=== PATIENT | female | born 1960 | race Two or more races ===

== ENCOUNTER 2016-06-17 08:15 | Emergency (ER) | payer BC, OTHER ==
[~2016-06-17] VITALS: Ht 157.5 cm; Wt 78.9 kg
[~2016-06-17 08:15] MED LIST: ASPI81CH43 PO; ATO40T PO; ESOM40CA39 PO; LOSA100T27 PO; MET50T PO
[2016-06-17] MEDS ORDERED: SODIUM CHLORIDE 0.9% 1,000 ML IV ONE (09:39)
[2016-06-17 09:48] LABS: Urine RBC None Seen /hpf (0 - 4)
[2016-06-17 09:54] LABS: Basophils # (auto) 0 uL; Basophils % (auto) 0.3 % (0.0-2.0); Eosinophils # (auto) 0.2 uL; Eosinophils % (auto) 1.5 % (0.0-7.0); Hematocrit 40.5 % (36.0-46.0); Hemoglobin 13.6 g/dL (12.2-16.2); Lymphocytes # (auto) 2.6 uL; Lymphocytes % (auto) 20.9 % (10.0-50.0); Mean Corpuscular Hemoglobin 29.8 pg (28.0-32.0); Mean Corpuscular Hgb Conc. 33.6 g/dL (32.0-36.0); Mean Corpuscular Volume 88.6 fL (80.0-100.0); Mean Platelet Volume 8.7 fL (7.4-10.4); Monocytes # (auto) 0.8 uL; Monocytes % (auto) 6.2 % (0.0-12.0); Neutrophils # (auto) 8.7 uL; Neutrophils % (auto) 71.1 % (37.0-80.0); Platelet Count (auto) 431 10^3/uL (140-450); Red Cell Distribution Width 14.3 % (11.6-16.0); White Blood Cell 12.3 10^3/uL (4.4-10.8)
[2016-06-17 10:05] LABS: INR 0.96 (0.9-1.15); Partial Thromboplastin Time 24.3 sec (22.64-33.71); Prothrombin Time 10.4 sec (9.37-12.3)
[2016-06-17 10:08] LABS: Albumin 3.5 g/dL (3.4-5.0); Alkaline Phosphatase 166 U/L (45-117); Anion Gap 6 (5-15); Aspartate Aminotransferase 37 U/L (15-37); BUN/Creatinine Ratio 27.1; Bilirubin, Total 0.4 mg/dL (0.2-1.0); Blood Urea Nitrogen 19 mg/dL (7-18); Calcium 8.6 mg/dL (8.5-10.1); Carbon Dioxide 33 mmol/L (21-32); Chloride 101 mmol/L (98-107); GFR African American 111 mL/min; GFR Non-African American 92 mL/min; Glucose 128 mg/dL (74-106); Potassium 3.4 mmol/L (3.5-5.1); Sodium 140 mmol/L (136-145); Total Protein 7.5 g/dL (6.4-8.2)
[2016-06-17 10:14] LABS: Urine Bilirubin Negative (Negative); Urine Blood Negative /uL (Negative); Urine Color Yellow (Yellow); Urine Glucose Normal (Normal); Urine Ketone Negative (Negative); Urine Mucus FEW (None Seen); Urine Nitrite Negative (Negative); Urine Squamous Epithelial Cell FEW /hpf (<5); Urine Urobilinogen Normal (Negative)
[2016-06-17 10:22] VITALS: BP 133/77
[2016-06-17 10:28] LABS: B-Type Natriuretic Peptide 31.54 pg/mL (0-100)
[2016-06-17 10:42] LABS: Temperature: 23.6 C (20.0-25.0)
== END 2016-06-17 12:16 | disposition home or self-care (01) ==
LOC: ER 08:15
DX: G45.9 Transient cerebral ischemic attack, unspecified (principal); D86.9 Sarcoidosis, unspecified; E86.0 Dehydration; R42 Dizziness and giddiness; F17.210 Nicotine dependence, cigarettes, uncomplicated; E78.5 Hyperlipidemia, unspecified; I10 Essential (primary) hypertension; Z87.11 Personal history of peptic ulcer disease; Z79.82 Long term (current) use of aspirin
CPT/HCPCS: 36415; 70450; 71010; 80053; 81001; 83880; 84484; 85025; 85610; 85730; 93005; 96360

== ENCOUNTER 2019-01-27 11:33 | Inpatient (IN) | payer BC, OTHER ==
[~2019-01-27] VITALS: Ht 157.5 cm; Wt 101.6 kg
[~2019-01-27 11:33] MED LIST changes: +LOSA-39 PO; -LOSA100T27 PO
[2019-01-27] MEDS ORDERED: cloNIDine HCL 0.1 MG TAB PO ONE (12:00)
[2019-01-27 13:18] LABS: Alanine Aminotransferase 43 U/L (13-56); Albumin 3.9 g/dL (3.4-5.0); Anion Gap 4 (5-15); Basophils # (auto) 0.1 uL; Basophils % (auto) 0.9 % (0.0-2.0); Blood Urea Nitrogen 10 mg/dL (7-18); Calcium 8.9 mg/dL (8.5-10.1); Carbon Dioxide 32 mmol/L (21-32); Chloride 107 mmol/L (98-107); Eosinophils # (auto) 0 uL; Eosinophils % (auto) 0.6 % (0.0-7.0); Glucose 97 mg/dL (74-106); Hematocrit 40.9 % (36.0-46.0); Hemoglobin 13.8 g/dL (12.2-16.2); Lymphocytes # (auto) 1.8 uL; Lymphocytes % (auto) 23.4 % (10.0-50.0); Magnesium 2.1 mg/dL (1.6-2.6); Mean Corpuscular Hemoglobin 30.8 pg (28.0-32.0); Mean Corpuscular Hgb Conc. 33.7 g/dL (32.0-36.0); Mean Corpuscular Volume 91.5 fL (80.0-100.0); Monocytes # (auto) 0.6 uL; Monocytes % (auto) 7.4 % (0.0-12.0); Neutrophils # (auto) 5.1 uL; Neutrophils % (auto) 67.7 % (37.0-80.0); Platelet Count (auto) 297 10^3/uL (140-450); Potassium 3.5 mmol/L (3.5-5.1); Red Blood Cells 4.48 10^6/uL (4.0-5.20); Red Cell Distribution Width 14.2 % (11.8-14.3); Sodium 143 mmol/L (136-145); White Blood Cell 7.6 10^3/uL (4.4-10.8)
[2019-01-27 13:23] LABS: Alkaline Phosphatase 87 U/L (45-117); Aspartate Aminotransferase 20 U/L (15-37); BUN/Creatinine Ratio 14.5; Bilirubin, Total 0.4 mg/dL (0.2-1.0); GFR African American 112 mL/min; GFR Non-African American 92 mL/min; Total Protein 7.9 g/dL (6.4-8.2)
[2019-01-27] MEDS ORDERED: LACTULOSE 20Gm/30ML SOLN PO PRN (15:30)
[2019-01-27] MEDS ORDERED: traMADol HCL 50 MG TAB PO PRN (15:30)
[2019-01-27] MEDS ORDERED: DEXTROSE (50%) 50ML SYRG IV PRN (15:30)
[2019-01-27] MEDS ORDERED: ACETAMINOPHEN 500 MG TAB PO PRN (15:30)
[2019-01-27] MEDS ORDERED: MORPHINE SULF INJ 2 MG/ML SYRINGE 1ML IV PRN (15:30)
[2019-01-27] MEDS ORDERED: NITROGLYCERIN 0.4 MG SL TAB SL PRN (15:30)
[2019-01-27] MEDS ORDERED: PROMETHAZINE HCL 25 MG/ML 1ML IV PRN (15:30)
[2019-01-27] MEDS ORDERED: LORazepam 0.5 MG TAB PO PRN (15:30)
[2019-01-27] MEDS: SODIUM CHLORIDE 0.9% 1,000 ML IV SCH (16:58)
[2019-01-27] MEDS: ACCU-CHEK COMFORT CURVE STRIP VI SCH ×2 (17:04→22:53)
--- NOTE | 2019-01-27 19:42 | NUR ---
Telemetry admit from ER WAYNE SILVER admitted to Telemetry unit. Patient oriented to JOSE RUELAS RN primary RN, unit, room, bed, and unit policies regarding patient care and visiting hours. Patient now on continuous telemetry monitoring, tele box #49 and telemetry reading on arrival to unit is Sinus Bradycardia. Patient encouraged to call if they need something. All questions and concerns addressed, patient verbalized understanding. Patient's family is at the bedside. Will continue to monitor every hour and as needed.
[2019-01-27 22:00] VITALS: BP 131/79
[2019-01-27] MEDS: METOPROLOL TARTRATE 25 MG TAB PO SCH (22:00)
[2019-01-27] MEDS ORDERED: ATORVASTATIN 20 MG TAB PO SCH (22:00)
[2019-01-27] MEDS: ATORVASTATIN 20 MG TAB PO SCH (22:53)
[2019-01-28 05:00] VITALS: BP 154/87
[2019-01-28] MEDS: cloNIDine HCL 0.1 MG TAB PO PRN ×2 (05:26→23:21)
[2019-01-28] MEDS: SODIUM CHLORIDE 0.9% 1,000 ML IV SCH ×2 (06:30→18:55)
[2019-01-28] MEDS: ACCU-CHEK COMFORT CURVE STRIP VI SCH ×2 (06:43→12:39)
--- NOTE | 2019-01-28 07:50 | NUR ---
OPENING NOTE Assumed care of patient from NOC RN, [place]. Patient awake and alert with no S/S of distress/SOB or pain. Instructed on POC and to call for assistance PRN, verbalized understanding. Bed in lowest, locked position with side rails up x2 and call light within reach. Will continue to monitor for changes Q1hr and PRN.
[2019-01-28] MEDS ORDERED: ADENOSINE 85 MG in GIVE UN-DILUTED 0 ML IV STA (08:18)
[2019-01-28 09:00] VITALS: BP 147/67
[2019-01-28] MEDS: LISINOPRIL 10 MG TAB PO SCH (10:00)
[2019-01-28] MEDS ORDERED: ASPirin 81 mg TAB PO SCH (10:00)
[2019-01-28] MEDS: ENOXAPARIN SOD 40 MG/0.4 ML SYRINGE SC SCH (10:00)
--- NOTE | 2019-01-28 10:15 | NUR ---
OFF UNIT Patient taken off unit via wheelchair for stress test.
[2019-01-28] MEDS: ASPirin 81 mg TAB PO SCH (12:31)
[2019-01-28] MEDS: METOPROLOL TARTRATE 25 MG TAB PO SCH ×2 (12:33→22:09)
[2019-01-28] MEDS: amLODIPine BESYLATE 5 MG TAB PO SCH (12:35)
[2019-01-28] MEDS: PANTOPRAZOLE 40 MG TAB PO SCH (12:36)
[2019-01-28 13:00] VITALS: BP 156/96
[2019-01-28 17:00] VITALS: BP 144/79
--- NOTE | 2019-01-28 19:15 | NUR ---
Opening Shift Note Assumed care of patient, awake and alert. No S/S of distress/SOB or pain. Safety measures in place bed in lowest position, side rails x2 up, and call light within reach. Instructed on POC and to call for assist PRN, will continue to monitor for changes Q1hr and PRN.
--- NOTE | 2019-01-28 19:15 | NUR ---
CLOSING NOTE Endorsed care of patient to NOC RN, [place].
[2019-01-28] MEDS: ATORVASTATIN 20 MG TAB PO SCH (22:05)
[2019-01-29 05:00] VITALS: BP 139/78
[2019-01-29 06:06] LABS: Urine Bacteria NONE SEEN /hpf (None Seen); Urine Blood Negative /uL (Negative); Urine Specific Gravity 1.012 (1.001-1.035); Urine WBC 2 /hpf (0 - 5)
[2019-01-29 06:24] LABS: Alcohol, Urine < 3.0 mg/dL (0-5); Amphetamine Screen, Urine NEGATIVE (NEGATIVE); Barbiturate Scree,Urine NEGATIVE (NEGATIVE); Benzodiazephine Screen, Urine NEGATIVE (NEGATIVE); Cannabinoid Screen, Urine NEGATIVE (NEGATIVE); Cocaine Screen, Urine NEGATIVE (NEGATIVE); Opiate Scree,Urine NEGATIVE (NEGATIVE); Phencyclidine Screen, Urine NEGATIVE (NEGATIVE)
--- NOTE | 2019-01-29 07:00 | NUR ---
OPENING NOTE ASSUMED CARE. PATIENT IN BED, AWAKE, A&O DENIES DISCOMFORT. UNLABORED, EVEN RESPIRATIONS, DENIES PAIN. EXPLAINED POC, PT VERBALIZE UNDERSTANDING. BED IN LOWEST POSITION, CALL LIGHT WITH IN REACH.
[2019-01-29 08:54] VITALS: BP 156/85
[2019-01-29] MEDS: SODIUM CHLORIDE 0.9% 1,000 ML IV SCH (09:36)
[2019-01-29] MEDS: METOPROLOL TARTRATE 25 MG TAB PO SCH (09:37)
[2019-01-29] MEDS: LISINOPRIL 10 MG TAB PO SCH (09:38)
[2019-01-29] MEDS: amLODIPine BESYLATE 5 MG TAB PO SCH (09:38)
[2019-01-29] MEDS: PANTOPRAZOLE 40 MG TAB PO SCH (09:39)
[2019-01-29] MEDS: ASPirin 81 mg TAB PO SCH (09:39)
[2019-01-29] MEDS: ENOXAPARIN SOD 40 MG/0.4 ML SYRINGE SC SCH (09:41)
[2019-01-29] MEDS ORDERED: LOSARTAN POTASSIUM 50 MG TAB PO SCH (10:00)
--- NOTE | 2019-01-29 10:00 | NUR ---
ROUTINE CHECK/ MEDS PATIENT WAS ABLE TO TAKE MEDICATIONS, AT BED SIDE. CALL LIGHT WITH IN REACH, BED IN LOWEST POSITION. PATIENT DID REFUSED LOVENOX.
[2019-01-29] MEDS ORDERED: AML5T PO (10:17)
--- NOTE | 2019-01-29 11:47 | NUR ---
DISCHARGE PATIENT AWARE OF DISCHARGE PLANS, ORDERS ARE BEING CARRIED OUT.
[2019-01-29 12:49] VITALS: BP 148/75
--- NOTE | 2019-01-29 13:09 | NUR ---
Discharge Discharge education and paperwork provided by NAYAN Rosario, to the patient per MD order. Patient verbalized understanding. Araseli Arias information given to the patient. IV removed by NAYAN Rosario, with clean technique, catheter intact. Dressing applied. Patient tolerated well, no trauma to site. Telemonitor removed and returned to telemonitor tech. Patient collected all personal belongings. Patient refused wheelchair. Patient ambulated with steady gait to hospital lobby to wait for her . Respirations even and unlabored, no distress noted.
--- NOTE | 2019-01-29 13:15 | NUR ---
DISCHARGE PATIENT WAS DISCHARGED, DENIES DISCOMFORT. IV DISCONTINUE, NO TRAUMA TO THE AREA, TELE BOX REMOVED. PATIENT RECEIVED DISCHARGED PACKAGE. DISCHARGE INSTRUCTIONS GIVEN, PATIENT VERBALIZED UNDERSTANDING. PATIENT LEFT, WALKING.
== END 2019-01-29 13:10 | disposition home or self-care (01) | DRG 69 ==
LOC: ER 11:33 → TELE 11:34 → TELE-WESTW 19:42
PROVIDERS: ADMIT Internal Medicine; ATTEND Internal Medicine
DX: G45.9 Transient cerebral ischemic attack, unspecified (principal); Z68.41 Body mass index [BMI] 40.0-44.9, adult; I16.0 Hypertensive urgency; E11.9 Type 2 diabetes mellitus without complications; E78.5 Hyperlipidemia, unspecified; F17.200 Nicotine dependence, unspecified, uncomplicated; E66.01 Morbid (severe) obesity due to excess calories; I10 Essential (primary) hypertension; I25.2 Old myocardial infarction; Z79.82 Long term (current) use of aspirin; Z79.899 Other long term (current) drug therapy; Z81.8 Family history of other mental and behavioral disorders; Z82.49 Family history of ischemic heart disease and other diseases of the circulatory system; Z83.3 Family history of diabetes mellitus; Z86.73 Personal history of transient ischemic attack (TIA), and cerebral infarction without residual deficits; Z87.11 Personal history of peptic ulcer disease; Z79.84 Long term (current) use of oral hypoglycemic drugs
CPT/HCPCS: 36415; 70450; 70551; 71046; 78452; 80053; 80307; 81001; 82533; 82550; 82962; 83036; 83735; 83880; 84443; 84484; 85025; 85379; 85652; 86141; 93005; 93017; 93306; 93886; 96361; 96365; G0378; J0153

== ENCOUNTER → 2019-04-28 | Outpatient (CLI) | payer BC ==
[~2019-04-28] MED LIST changes: +AML5T PO
[2019-04-28 15:34] LABS: Calcium 8.9 mg/dL (8.5-10.1); Potassium 4.2 mmol/L (3.5-5.1)
== END | disposition home or self-care (01) ==
LOC: LAB 14:54
PROVIDERS: ATTEND Internal Medicine Nephrology
DX: I10 Essential (primary) hypertension (principal)
CPT/HCPCS: 36415; 80048

== ENCOUNTER → 2019-08-23 | Outpatient (CLI) | payer BC, OTHER ==
[~2019-08-23] MED LIST changes: +ALBUTEROL SULF 2.5 MG/0.5ML(0.5%) NEB SOLN ONE
== END | disposition home or self-care (01) ==
LOC: RT 08:31
PROVIDERS: ATTEND Internal Medicine Pulmonary Disease
DX: D86.9 Sarcoidosis, unspecified (principal)
CPT/HCPCS: 94060; 94727; 94729

== ENCOUNTER → 2019-12-19 | Outpatient (CLI) | payer BC ==
[~2019-12-19] MED LIST changes: -ALBUTEROL SULF 2.5 MG/0.5ML(0.5%) NEB SOLN ONE
[2019-12-19 07:45] LABS: Basophils # (auto) 0 10 ^3/uL (0-0.2); Basophils % (auto) 0.5 % (0.0-2.0); Eosinophils # (auto) 0.1 10 ^3/uL (0-0.8); Eosinophils % (auto) 1.3 % (0.0-7.0); Hematocrit 42.3 % (36.0-46.0); Hemoglobin 14.1 g/dL (12.2-16.2); Lymphocytes # (auto) 2.6 10 ^3/uL (0.4-5.4); Lymphocytes % (auto) 34.6 % (10.0-50.0); Mean Corpuscular Hemoglobin 30.1 pg (28.0-32.0); Mean Corpuscular Hgb Conc. 33.4 g/dL (32.0-36.0); Mean Corpuscular Volume 90.2 fL (80.0-100.0); Monocytes # (auto) 0.4 10 ^3/uL (0-1.3); Monocytes % (auto) 5.7 % (0.0-12.0); Neutrophils # (auto) 4.4 10 ^3/uL (1.6-8.6); Neutrophils % (auto) 57.9 % (37.0-80.0); Platelet Count (auto) 316 10^3/uL (140-450); Red Blood Cells 4.69 10^6/uL (4.0-5.20); Red Cell Distribution Width 14.5 % (11.8-14.3); White Blood Cell 7.6 10^3/uL (4.4-10.8)
[2019-12-19 08:04] LABS: INR 0.95 (0.9-1.15)
[2019-12-19 08:16] LABS: Albumin 3.9 g/dL (3.4-5.0); BUN/Creatinine Ratio 31.5; Calcium 9.1 mg/dL (8.5-10.1); Potassium 3.5 mmol/L (3.5-5.1)
[2019-12-19 08:20] LABS: Bilirubin, Total 0.5 mg/dL (0.2-1.0)
[2019-12-19 08:43] LABS: Urine Bacteria NONE SEEN /hpf (None Seen); Urine Blood Negative /uL (Negative); Urine Specific Gravity 1.025 (1.001-1.035); Urine WBC 3 /hpf (0 - 5)
== END | disposition home or self-care (01) ==
LOC: LAB 07:23
PROVIDERS: ATTEND Internal Medicine Nephrology
DX: I10 Essential (primary) hypertension (principal); R00.2 Palpitations; Z86.2 Personal history of diseases of the blood and blood-forming organs and certain disorders involving the immune mechanism
CPT/HCPCS: 36415; 80053; 80061; 81001; 84439; 84443; 85025; 85610

== ENCOUNTER → 2019-12-22 | Outpatient (CLI) | payer BC ==
[2019-12-22 09:05] LABS: Potassium 3.6 mmol/L (3.5-5.1)
[2019-12-22 09:13] LABS: Albumin 3.7 g/dL (3.4-5.0); BUN/Creatinine Ratio 20.3; Bilirubin, Total 0.7 mg/dL (0.2-1.0); Calcium 8.6 mg/dL (8.5-10.1); Total Protein 7.3 g/dL (6.4-8.2)
== END | disposition home or self-care (01) ==
LOC: LAB 08:08
PROVIDERS: ATTEND Internal Medicine Nephrology
DX: E78.5 Hyperlipidemia, unspecified (principal); R73.9 Hyperglycemia, unspecified
CPT/HCPCS: 36415; 80053; 82043; 83036; 87086

== ENCOUNTER 2019-12-26 12:09 | Emergency (ER) | payer BC, OTHER ==
[~2019-12-26] VITALS: Ht 157.5 cm; Wt 78.9 kg
[2019-12-26] MEDS ORDERED: ACETAMINOPHEN 500 MG TAB PO ONE (15:15)
[2019-12-26 16:15] VITALS: BP 142/82
== END 2019-12-26 16:21 | disposition home or self-care (01) ==
LOC: ER 12:09
DX: S00.12XA Contusion of left eyelid and periocular area, initial encounter (principal); E78.5 Hyperlipidemia, unspecified; I10 Essential (primary) hypertension; X58.XXXA Exposure to other specified factors, initial encounter; Y93.89 Activity, other specified; Y92.89 Other specified places as the place of occurrence of the external cause; Y99.0 Civilian activity done for income or pay
CPT/HCPCS: 70486; 99284; J7030

== ENCOUNTER → 2020-01-16 | Outpatient (CLI) | payer BC ==
[2020-01-16 16:59] LABS: Basophils # (auto) 0 10 ^3/uL (0-0.2); Basophils % (auto) 0.5 % (0.0-2.0); Eosinophils # (auto) 0.1 10 ^3/uL (0-0.8); Eosinophils % (auto) 1.4 % (0.0-7.0); Hematocrit 39.5 % (36.0-46.0); Hemoglobin 13.3 g/dL (12.2-16.2); Lymphocytes # (auto) 2.2 10 ^3/uL (0.4-5.4); Lymphocytes % (auto) 26.1 % (10.0-50.0); Mean Corpuscular Hemoglobin 30.6 pg (28.0-32.0); Mean Corpuscular Hgb Conc. 33.6 g/dL (32.0-36.0); Mean Corpuscular Volume 91.1 fL (80.0-100.0); Monocytes # (auto) 0.7 10 ^3/uL (0-1.3); Monocytes % (auto) 8.2 % (0.0-12.0); Neutrophils # (auto) 5.4 10 ^3/uL (1.6-8.6); Neutrophils % (auto) 63.8 % (37.0-80.0); Nucleated Red Blood Cells % 0.1 %; Platelet Count (auto) 323 10^3/uL (140-450); Red Blood Cells 4.34 10^6/uL (4.0-5.20); White Blood Cell 8.4 10^3/uL (4.4-10.8)
[2020-01-16 17:09] LABS: Albumin 3.9 g/dL (3.4-5.0); Calcium 9.4 mg/dL (8.5-10.1); Potassium 3.9 mmol/L (3.5-5.1)
[2020-01-16 17:14] LABS: BUN/Creatinine Ratio 18.8; Bilirubin, Total 0.5 mg/dL (0.2-1.0); Total Protein 7.8 g/dL (6.4-8.2)
== END | disposition home or self-care (01) ==
LOC: LAB 15:57
PROVIDERS: ATTEND Internal Medicine
DX: I10 Essential (primary) hypertension (principal); R00.2 Palpitations
CPT/HCPCS: 36415; 80053; 85025

== ENCOUNTER → 2020-05-22 | Outpatient (CLI) | payer BC | END | disposition home or self-care (01) | LOC: XYW 10:06 | PROVIDERS: ATTEND Internal Medicine | DX: I07.1 Rheumatic tricuspid insufficiency (principal); R00.2 Palpitations | CPT/HCPCS: 93306 ==

== ENCOUNTER → 2020-07-24 | Outpatient (CLI) | payer BC | END | disposition home or self-care (01) | LOC: XY 08:54 | PROVIDERS: ATTEND Internal Medicine | DX: R07.9 Chest pain, unspecified (principal); Z86.73 Personal history of transient ischemic attack (TIA), and cerebral infarction without residual deficits | CPT/HCPCS: 93886 ==

== ENCOUNTER → 2021-02-18 | Outpatient (CLI) | payer BC ==
[2021-02-18 10:12] LABS: Basophils # (auto) 0 10 ^3/uL (0-0.2); Basophils % (auto) 0.6 % (0.0-2.0); Eosinophils # (auto) 0 10 ^3/uL (0-0.8); Eosinophils % (auto) 0.2 % (0.0-7.0); Hematocrit 42.3 % (36.0-46.0); Hemoglobin 14.2 g/dL (12.2-16.2); Lymphocytes # (auto) 2.7 10 ^3/uL (0.4-5.4); Lymphocytes % (auto) 31.3 % (10.0-50.0); Mean Corpuscular Hemoglobin 29.9 pg (28.0-32.0); Mean Corpuscular Hgb Conc. 33.6 g/dL (32.0-36.0); Monocytes # (auto) 0.5 10 ^3/uL (0-1.3); Monocytes % (auto) 6.2 % (0.0-12.0); Neutrophils # (auto) 5.3 10 ^3/uL (1.6-8.6); Neutrophils % (auto) 61.7 % (37.0-80.0); Red Blood Cells 4.76 10^6/uL (4.0-5.20); Red Cell Distribution Width 14.4 % (11.8-14.3); White Blood Cell 8.5 10^3/uL (4.4-10.8)
[2021-02-18 10:59] LABS: Calcium 9.3 mg/dL (8.5-10.1); Potassium 3.7 mmol/L (3.5-5.1)
[2021-02-18 11:07] LABS: Albumin 3.7 g/dL (3.4-5.0); BUN/Creatinine Ratio 24.4; Bilirubin, Total 0.5 mg/dL (0.2-1.0); Total Protein 7.7 g/dL (6.4-8.2)
== END | disposition home or self-care (01) ==
LOC: LAB 09:58
PROVIDERS: ATTEND Internal Medicine Nephrology
DX: I10 Essential (primary) hypertension (principal)
CPT/HCPCS: 36415; 80053; 80061; 83036; 84443; 85025

== ENCOUNTER 2022-11-26 06:56 | Day surgery (SDC) | payer BC ==
[2022-11-26] VITALS (9 sets, daily range): BP systolic 149–165; BP diastolic 86–98; PULSE 54–64; RESP 11–16; TEMP 97.4; O2SAT 96–99
[~2022-11-26] VITALS: Ht 157.5 cm; Wt 77.6 kg
[~2022-11-26 06:56] MED LIST changes: -AML5T PO; -ASPI81CH43 PO; -ATO40T PO; +ESOM20CA PO; -ESOM40CA39 PO; -LOSA-39 PO; +LOSA50TA30 PO; +MELA3TAB12 PO; -MET50T PO; +METO-158 PO; +RANO500T3 PO; +ROSU20TA14 PO
[2022-11-26] MEDS ORDERED: LIDOCAINE 2%HCL (LOCAL ANESTH.) INJ 20ML MDV ONE (07:32)
[2022-11-26] MEDS ORDERED: IODIXANOL 320MG/ML 100ML BTL IV ONE (07:32)
[2022-11-26] MEDS ORDERED: IOHEXOL 350 MG/ML 100ML IJ ONE (07:32)
[2022-11-26] MEDS ORDERED: fentaNYL CITRATE 100 MCG/2 ML VL ONE (08:54)
[2022-11-26] MEDS ORDERED: SODIUM CHL 0.9% 0 ML ONE (08:54)
[2022-11-26] MEDS ORDERED: ANGIOMAX 250 MG VIAL IV ONE (08:54)
[2022-11-26] MEDS ORDERED: MIDAZOLAM HCL 2MG/2ML 2ml VIAL (1mg/ml) ONE (08:54)
== END 2022-11-26 12:33 | disposition home or self-care (01) ==
LOC: CATH 06:56
PROVIDERS: ATTEND Internal Medicine
DX: R07.89 Other chest pain (principal); R06.02 Shortness of breath; I10 Essential (primary) hypertension; Z79.899 Other long term (current) drug therapy; Z98.890 Other specified postprocedural states
CPT/HCPCS: 93460; C1757; C1894; J1644; J2250; J3010; Q9967; 99152

== ENCOUNTER → 2022-12-23 | Outpatient (CLI) | payer BC ==
[2022-12-23 10:23] LABS: Alanine Aminotransferase 40 U/L (7-40); Albumin 4.5 g/dL (3.2-4.8); Alkaline Phosphatase 102 U/L (46-116); Anion Gap 4 (5-15); Aspartate Aminotransferase 21 U/L (13-40); BUN/Creatinine Ratio 12.7 (10.0-20.0); Bilirubin, Total 0.6 mg/dL (0.2-1.0); Blood Urea Nitrogen 10 mg/dL (9-23); Calcium 9.5 mg/dL (8.7-10.4); Carbon Dioxide 33 mmol/L (20-30); Chloride 102 mmol/L (98-107); Glucose 184 mg/dL (74-106); Potassium 3.8 mmol/L (3.5-5.1); Sodium 139 mmol/L (136-145); Total Protein 7.5 g/dL (5.7-8.2)
[2022-12-24 11:38] LABS: Urine Bacteria NONE SEEN /hpf (None Seen); Urine Blood Negative /uL (Negative); Urine Clarity Clear (Clear); Urine Color Yellow (Yellow); Urine Protein, UAD Negative (Negative); Urine Specific Gravity 1.018 (1.001-1.035); Urine Urobilinogen Normal (Negative); Urine WBC 19 /hpf (0 - 5)
== END | disposition home or self-care (01) ==
LOC: LAB 09:16
PROVIDERS: ATTEND Internal Medicine
DX: E11.9 Type 2 diabetes mellitus without complications (principal); D64.9 Anemia, unspecified; R94.6 Abnormal results of thyroid function studies
CPT/HCPCS: 36415; 80053; 81001; 83036; 84443; 87086

== ENCOUNTER → 2023-03-11 | Outpatient (CLI) | payer BC ==
[2023-03-11 09:43] LABS: Alanine Aminotransferase 89 U/L (7-40); Alkaline Phosphatase 127 U/L (46-116); Anion Gap 7 (5-15); Aspartate Aminotransferase 46 U/L (13-40); BUN/Creatinine Ratio 11.8 (10.0-20.0); Blood Urea Nitrogen 10 mg/dL (9-23); Calcium 9.6 mg/dL (8.5-10.1); Carbon Dioxide 29 mmol/L (20-30); Chloride 107 mmol/L (98-107); Glucose 163 mg/dL (74-106); LDL Cholesterol 137 mg/dL (< 100); Potassium 4.3 mmol/L (3.5-5.1); Sodium 143 mmol/L (136-145); Triglycerides 111 mg/dL (< 150)
[2023-03-11 09:44] LABS: Albumin 4.4 g/dL (3.2-4.8); Bilirubin, Total 0.6 mg/dL (0.2-1.0); Cholesterol 222 mg/dL (< 200); HDL Cholesterol 63 mg/dL (40-59); Total Protein 7.2 g/dL (5.7-8.2)
== END | disposition home or self-care (01) ==
LOC: LAB 08:40
PROVIDERS: ATTEND Internal Medicine
DX: E11.9 Type 2 diabetes mellitus without complications (principal); R79.9 Abnormal finding of blood chemistry, unspecified; E78.00 Pure hypercholesterolemia, unspecified
CPT/HCPCS: 36415; 80053; 80061; 83036

== ENCOUNTER 2023-11-13 09:50 | Emergency (ER) | payer MEDICARE, BC ==
[~2023-11-13] VITALS: Ht 157.5 cm; Wt 78.5 kg
[2023-11-13 10:45] LABS: Urine Bacteria FEW /hpf (None Seen); Urine Blood 2+ /uL (Negative); Urine Clarity Turbid (Clear); Urine Color Colorless (Yellow); Urine Protein, UAD 1+ (Negative); Urine Specific Gravity 1.032 (1.001-1.035); Urine Urobilinogen Normal (Negative); Urine WBC 511 /hpf (0 - 5)
[2023-11-13 11:31] VITALS: BP 148/91; PULSE 89; RESP 17; TEMP 97.7; O2SAT 96
[2023-11-13] MEDS ORDERED: BACDST PO (11:41)
[2023-11-13] MEDS ORDERED: PHEN-922 PO (11:41)
[2023-11-13] MEDS: cefTRIAXone SOD 1,000 MG VL IM ONE (11:50)
== END 2023-11-13 11:59 | disposition home or self-care (01) ==
LOC: ER 09:50
DX: N39.0 Urinary tract infection, site not specified (principal); E78.5 Hyperlipidemia, unspecified; I10 Essential (primary) hypertension; Z86.73 Personal history of transient ischemic attack (TIA), and cerebral infarction without residual deficits
CPT/HCPCS: 81001; 82962; 96372; 99283; J0696

== ENCOUNTER 2023-11-19 09:29 | Inpatient (IN) | payer MEDICARE, BC ==
[~2023-11-19] VITALS: Ht 157.5 cm; Wt 80.9 kg
[~2023-11-19 09:29] MED LIST changes: +BACDST PO; +PHEN-922 PO
[2023-11-19 10:20] LABS: Urine Bacteria None Seen /hpf (None Seen)
[2023-11-19] MEDS: SODIUM CHLORIDE 0.9% 1,000 ML IV ONE (10:45)
[2023-11-19 10:52] LABS: Urine Blood Negative /uL (Negative); Urine Clarity Clear (Clear); Urine Color Yellow (Yellow); Urine Mucus FEW (None Seen); Urine Protein, UAD TRACE (Negative); Urine Specific Gravity 1.033 (1.001-1.035); Urine Urobilinogen Normal (Negative); Urine WBC 1 /hpf (0 - 5); Urine pH 5.5 (5.0-9.0)
[2023-11-19 11:00] VITALS: PULSE 85; RESP 16; O2SAT 100
[2023-11-19] MEDS: ONDANSETRON HCL 4 MG/2 ML VIAL IV ONE (11:42)
[2023-11-19] MEDS: MORPHINE SULFATE 4 MG/ML SYR/VIAL IV ONE ×2 (11:44→14:37)
[2023-11-19 11:59] LABS: Basophils # (auto) 0 10 ^3/uL (0-0.2); Basophils % (auto) 0.3 % (0.0-2.0); Eosinophils # (auto) 0 10 ^3/uL (0-0.8); Eosinophils % (auto) 0.2 % (0.0-7.0); Hemoglobin 15.2 g/dL (12.2-16.2); Lymphocytes # (auto) 1.3 10 ^3/uL (0.4-5.4); Lymphocytes % (auto) 10.9 % (10.0-50.0); Mean Corpuscular Hemoglobin 30.4 pg (28.0-32.0); Mean Corpuscular Hgb Conc. 33.8 g/dL (32.0-36.0); Monocytes # (auto) 0.7 10 ^3/uL (0-1.3); Monocytes % (auto) 5.6 % (0.0-12.0); Neutrophils # (auto) 9.7 10 ^3/uL (1.6-8.6); Platelet Count (auto) 365 10^3/uL (140-450); White Blood Cell 11.7 10^3/uL (4.4-10.8)
[2023-11-19 12:01] LABS: Alanine Aminotransferase 395 U/L (7-40); Albumin 5.1 g/dL (3.2-4.8); Alkaline Phosphatase 303 U/L (46-116); Anion Gap 5 (5-15); Aspartate Aminotransferase 248 U/L (13-40); BUN/Creatinine Ratio 11.4 (10.0-20.0); Blood Urea Nitrogen 9 mg/dL (9-23); Calcium 10.3 mg/dL (8.7-10.4); Carbon Dioxide 30 mmol/L (20-30); Chloride 104 mmol/L (98-107); Glucose 168 mg/dL (74-106); Sodium 139 mmol/L (136-145)
[2023-11-19 12:02] LABS: Bilirubin, Total 0.7 mg/dL (0.2-1.0); Total Protein 8.3 g/dL (5.7-8.2)
[2023-11-19] MEDS: FAMOTIDINE 20 MG TAB PO ONE (12:50)
[2023-11-19] MEDS: PIPERACILLIN-TAZO 4.5GM 100 ML IV ONE (13:06)
[2023-11-19] MEDS: HYDROmorphone HCL 2 MG/ML VL/or syr IV ONE (13:58)
[2023-11-19] MEDS ORDERED: NITROGLYCERIN 0.4 MG SL TAB SL PRN (16:15)
[2023-11-19] MEDS ORDERED: ONDANSETRON HCL 4 MG/2 ML VIAL IV PRN (16:15)
[2023-11-19] MEDS ORDERED: MORPHINE SULFATE INJ 2 MG/ml SYRG IV PRN (16:15)
[2023-11-19] MEDS ORDERED: DOCUSATE SOD 100 MG CAP PO PRN (16:15)
[2023-11-19] MEDS ORDERED: DEXTROSE (50%) 50ML SYRG IV PRN (16:15)
[2023-11-19] MEDS: PANTOPRAZOLE 40 MG/10 ML VIAL INJ IV ONE (17:35)
[2023-11-19] MEDS: PIPERACILLIN-TAZOB 3.375GM 100 ML IV ONE (17:35)
[2023-11-19] MEDS: SODIUM CHLORIDE 0.9% 1,000 ML IV SCH (17:36)
[2023-11-19] MEDS: PIPERACILLIN-TAZOB 3.375GM 100 ML IV SCH (17:57)
[2023-11-19] MEDS: InsuLIN REG 1unit/0.01ml Soln (100units/ml) SC SCH (18:58)
[2023-11-19] MEDS: ACCU-CHEK COMFORT CURVE STRIP VI SCH (18:58)
[2023-11-19 21:30] VITALS: PULSE 72; RESP 19; O2SAT 95
[2023-11-19 22:02] VITALS: BP 152/83; PULSE 75; RESP 16; TEMP 98.2; O2SAT 97
[2023-11-19] MEDS ORDERED: EMPA1TAB3 PO (22:15)
[2023-11-19 22:38] VITALS: BP 152/83; PULSE 74; PULSE 75; RESP 16; TEMP 98.2; O2SAT 97
[2023-11-20 00:38] VITALS: BP 128/76; PULSE 71; RESP 14; TEMP 98.6; O2SAT 93
[2023-11-20] MEDS: PANTOPRAZOLE 40 MG/10 ML VIAL INJ IV ONE (01:18)
[2023-11-20 05:00] VITALS: BP 104/53; PULSE 71; RESP 14; TEMP 97.9; O2SAT 96
[2023-11-20 06:51] LABS: Alanine Aminotransferase 241 U/L (7-40); Albumin 4.1 g/dL (3.2-4.8); Alkaline Phosphatase 214 U/L (46-116); Anion Gap 6 (5-15); Aspartate Aminotransferase 85 U/L (13-40); BUN/Creatinine Ratio 9.4 (10.0-20.0); Blood Urea Nitrogen 6 mg/dL (9-23); Calcium 9.5 mg/dL (8.7-10.4); Carbon Dioxide 28 mmol/L (20-30); Chloride 106 mmol/L (98-107); Glucose 110 mg/dL (74-106); Potassium 3.8 mmol/L (3.5-5.1); Sodium 140 mmol/L (136-145); Total Protein 6.6 g/dL (5.7-8.2)
[2023-11-20 06:55] LABS: Basophils # (auto) 0 10 ^3/uL (0-0.2); Basophils % (auto) 0.3 % (0.0-2.0); Eosinophils # (auto) 0.1 10 ^3/uL (0-0.8); Eosinophils % (auto) 0.8 % (0.0-7.0); Hematocrit 35.9 % (36.0-46.0); Hemoglobin 12.6 g/dL (12.2-16.2); Lymphocytes # (auto) 1.9 10 ^3/uL (0.4-5.4); Lymphocytes % (auto) 20.2 % (10.0-50.0); Mean Corpuscular Hemoglobin 31.5 pg (28.0-32.0); Mean Corpuscular Hgb Conc. 35.2 g/dL (32.0-36.0); Mean Corpuscular Volume 89.5 fL (80.0-100.0); Monocytes # (auto) 0.6 10 ^3/uL (0-1.3); Monocytes % (auto) 6.2 % (0.0-12.0); Neutrophils # (auto) 6.9 10 ^3/uL (1.6-8.6); Neutrophils % (auto) 72.5 % (37.0-80.0); Platelet Count (auto) 273 10^3/uL (140-450); Red Blood Cells 4.01 10^6/uL (4.0-5.20); Red Cell Distribution Width 15.4 % (11.8-14.3); White Blood Cell 9.6 10^3/uL (4.4-10.8)
[2023-11-20 08:00] VITALS: RESP 18
[2023-11-20] MEDS ORDERED: PANTOPRAZOLE 40 MG/10 ML VIAL INJ IV SCH (10:00)
[2023-11-20] MEDS: PANTOPRAZOLE 40 MG/10 ML VIAL INJ IV SCH (10:04)
[2023-11-20 11:00] VITALS: BP 145/80; PULSE 75; RESP 14; TEMP 98.9; O2SAT 96
[2023-11-20 16:03] VITALS: BP 121/79; PULSE 73; RESP 16; TEMP 98.4; O2SAT 94
[2023-11-20] MEDS ORDERED: DEXL30CA4 PO (17:50)
[2023-11-20] MEDS ORDERED: LOSA-535 PO (17:51)
[2023-11-20 20:41] VITALS: BP 153/81; PULSE 76; RESP 14; TEMP 99; O2SAT 95
[2023-11-21 01:00] VITALS: BP 162/94; PULSE 74; RESP 14; TEMP 98.5; O2SAT 97
[2023-11-21] MEDS: METOPROLOL TARTRATE 50 MG TAB PO ONE (04:54)
[2023-11-21 05:00] VITALS: BP 188/101; PULSE 82; RESP 14; TEMP 98.2; O2SAT 95
[2023-11-21 08:50] VITALS: BP 172/86; PULSE 64; RESP 18; TEMP 98.5; O2SAT 96
[2023-11-21] MEDS ORDERED: METR-344 PO (10:11)
[2023-11-21] MEDS ORDERED: LEVO500T91 PO (10:11)
[2023-11-21] MEDS: LOSARTAN POTASSIUM 50 MG TAB PO SCH (10:20)
[2023-11-21] MEDS ORDERED: METOPROLOL TARTRATE 50 MG TAB PO SCH (22:00)
[2023-11-23 10:05] LABS: Hepatitis B Surface Antigen Negative (Negative)
[2023-11-23 10:25] LABS: Hepatitis A Ab IgM Negative
[2023-11-23 10:26] LABS: Hepatitis B Core IgM Negative; Hepatitis C Antibody Negative (Negative)
== END 2023-11-21 11:35 | disposition home or self-care (01) | DRG 392 ==
LOC: ER 09:29 → OVERFLOW 16:17 → EAST 16:17
PROVIDERS: ADMIT Nurse Practitioner Family; ATTEND Family Medicine
DX: K57.32 Diverticulitis of large intestine without perforation or abscess without bleeding (principal); E78.00 Pure hypercholesterolemia, unspecified; I10 Essential (primary) hypertension; K82.4 Cholesterolosis of gallbladder; Z86.73 Personal history of transient ischemic attack (TIA), and cerebral infarction without residual deficits; Z87.11 Personal history of peptic ulcer disease; E11.65 Type 2 diabetes mellitus with hyperglycemia
CPT/HCPCS: 36415; 74176; 76705; 80053; 80074; 80320; 81001; 82962; 85025; G0378; J1815; J2405; J2470; J2543

== ENCOUNTER → 2024-01-04 | Outpatient (CLI) | payer MEDICARE, BC ==
[~2024-01-04] MED LIST changes: -BACDST PO; +EMPA1TAB3 PO; +LEVO500T91 PO; +LOSA-535 PO; -LOSA50TA30 PO; -MELA3TAB12 PO; +METR-344 PO; -PHEN-922 PO; -RANO500T3 PO
[2024-01-04 12:11] LABS: Basophils # (auto) 0 10 ^3/uL (0-0.2); Basophils % (auto) 0.6 % (0.0-2.0); Eosinophils # (auto) 0.1 10 ^3/uL (0-0.8); Eosinophils % (auto) 0.9 % (0.0-7.0); Hematocrit 41.4 % (36.0-46.0); Lymphocytes # (auto) 1.9 10 ^3/uL (0.4-5.4); Lymphocytes % (auto) 27.2 % (10.0-50.0); Mean Corpuscular Hemoglobin 30.2 pg (28.0-32.0); Mean Corpuscular Hgb Conc. 33.9 g/dL (32.0-36.0); Mean Corpuscular Volume 89.3 fL (80.0-100.0); Monocytes # (auto) 0.4 10 ^3/uL (0-1.3); Monocytes % (auto) 5.9 % (0.0-12.0); Neutrophils # (auto) 4.5 10 ^3/uL (1.6-8.6); Neutrophils % (auto) 65.4 % (37.0-80.0); Nucleated Red Blood Cells % 0.1 %; Platelet Count (auto) 308 10^3/uL (140-450); Red Blood Cells 4.63 10^6/uL (4.0-5.20); Red Cell Distribution Width 14.5 % (11.8-14.3); White Blood Cell 6.9 10^3/uL (4.4-10.8)
[2024-01-04 12:23] LABS: INR 1.04 (0.9-1.15)
[2024-01-04 12:30] LABS: Alanine Aminotransferase 28 U/L (7-40); Alkaline Phosphatase 93 U/L (46-116); Anion Gap 5 (5-15); Aspartate Aminotransferase 17 U/L (13-40); BUN/Creatinine Ratio 11.3 (10.0-20.0); Blood Urea Nitrogen 8 mg/dL (9-23); Carbon Dioxide 30 mmol/L (20-31); Chloride 105 mmol/L (98-107); Glucose 102 mg/dL (74-106); Sodium 140 mmol/L (136-145)
[2024-01-04 12:31] LABS: Albumin 4.6 g/dL (3.2-4.8); Bilirubin, Total 0.6 mg/dL (0.2-1.0); Total Protein 7.7 g/dL (5.7-8.2)
== END | disposition home or self-care (01) ==
LOC: LAB 11:47
PROVIDERS: ATTEND Internal Medicine Gastroenterology
DX: K21.9 Gastro-esophageal reflux disease without esophagitis (principal); K76.0 Fatty (change of) liver, not elsewhere classified; K57.32 Diverticulitis of large intestine without perforation or abscess without bleeding; R10.9 Unspecified abdominal pain
CPT/HCPCS: 36415; 80053; 82728; 85025; 85610; 86038

== ENCOUNTER → 2024-02-08 | Outpatient (CLI) | payer OTHER, BC ==
[2024-02-08 09:46] LABS: Basophils # (auto) 0.1 10 ^3/uL (0-0.2); Basophils % (auto) 0.7 % (0.0-2.0); Eosinophils # (auto) 0.1 10 ^3/uL (0-0.8); Eosinophils % (auto) 0.9 % (0.0-7.0); Hematocrit 43.9 % (36.0-46.0); Hemoglobin 14.9 g/dL (12.2-16.2); Lymphocytes # (auto) 2.5 10 ^3/uL (0.4-5.4); Lymphocytes % (auto) 30.1 % (10.0-50.0); Mean Corpuscular Hemoglobin 30.4 pg (28.0-32.0); Mean Corpuscular Hgb Conc. 33.9 g/dL (32.0-36.0); Mean Corpuscular Volume 89.7 fL (80.0-100.0); Monocytes # (auto) 0.4 10 ^3/uL (0-1.3); Monocytes % (auto) 5.4 % (0.0-12.0); Neutrophils # (auto) 5.2 10 ^3/uL (1.6-8.6); Neutrophils % (auto) 62.9 % (37.0-80.0); Platelet Count (auto) 307 10^3/uL (140-450); Red Cell Distribution Width 14.3 % (11.8-14.3); White Blood Cell 8.3 10^3/uL (4.4-10.8)
[2024-02-08 10:14] LABS: Alanine Aminotransferase 40 U/L (7-40); Albumin 4.6 g/dL (3.2-4.8); Alkaline Phosphatase 114 U/L (46-116); Anion Gap 9 (5-15); Aspartate Aminotransferase 26 U/L (13-40); BUN/Creatinine Ratio 9.8 (10.0-20.0); Bilirubin, Total 0.6 mg/dL (0.2-1.0); Blood Urea Nitrogen 8 mg/dL (9-23); Carbon Dioxide 29 mmol/L (20-31); Chloride 105 mmol/L (98-107); Cholesterol 154 mg/dL (< 200); Glucose 119 mg/dL (74-106); HDL Cholesterol 56 mg/dL (40-59); LDL Cholesterol 71 mg/dL (< 100); Potassium 4.1 mmol/L (3.5-5.1); Sodium 143 mmol/L (136-145); Triglycerides 180 mg/dL (< 150)
[2024-02-08 10:15] LABS: Total Protein 7.6 g/dL (5.7-8.2)
[2024-02-08 11:33] LABS: T3 Total 1.04 ng/mL (0.60-1.81)
== END | disposition home or self-care (01) ==
LOC: LAB 09:20
PROVIDERS: ATTEND Internal Medicine
DX: E78.5 Hyperlipidemia, unspecified (principal); E11.69 Type 2 diabetes mellitus with other specified complication; I10 Essential (primary) hypertension
CPT/HCPCS: 36415; 80053; 80061; 84439; 84443; 84480; 85025

== ENCOUNTER 2024-03-04 11:59 | Emergency (ER) | payer OTHER, BC ==
[~2024-03-04] VITALS: Ht 157.5 cm; Wt 80.3 kg
--- NOTE | 2024-03-04 14:19 | ED.PDOC ---
Musculoskeletal HPI Comments 64y F who presents to the ED for chief complaint of lower extremity pain. Pt states she has been having L knee pain and swelling for the past 4 days. Pt states her pain has been getting progressively worse and pt has been having increasing pain while ambulating and came to the ED for further evaluation. Pt denies any associated fall or injury. Pt otherwise denies any other symptoms. pt otherwise has stable vitals in the ED. pt states that when her knee has pain like this, she usually needs a steroid injection in the knee Chief Complaint: Lower Extremity Time Seen by MD: 14:17 Primary Care Provider: CODY Reviewed Notes: Nurses Notes, Medications Allergies: Coded Allergies: NO KNOWN ALLERGIES (Unverified , 11/14/14) Home Meds Active Scripts Levofloxacin Hemihydrate (LEVAQUIN 500 MG) 500 Mg Tab, 1 TAB PO DAILY, #10 TAB Prov:ELENA FIELDS MD 11/21/23 Metronidazole (Flagyl) 500 Mg Tab, 1 TAB PO TID, #30 TAB Prov:ELENA FIELDS MD 11/21/23 Reported Medications Esomeprazole Magnesium Trihydr (Nexium) 20 Mg Cap, 1 CAP PO BID, #30 CAP 2 Refills 11/21/23 Losartan Potassium (Losartan Potassium) 100 Mg Tab, 100 MG PO DAILY, MG 11/20/23 Empagliflozin (Jardiance) 25 Mg Tab, 25 MG PO DAILY, TAB 11/19/23 Rosuvastatin Calcium (Crestor) 20 Mg Tab, 1 TAB PO DAILY for CHOLESTEROL 11/24/22 Metoprolol Tartrate (Metoprolol Tartrate) 50 Mg Tab, 50 MG PO BID for HTN 11/24/22 Information Source: Patient Mode of Arrival: Ambulatory Past Medical History PAST MEDICAL HISTORY: High Lipids, HTN, PUD, TIA 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 Family History Family History: Reviewed,noncontributory to illness Social History Smoker: Non-Smoker Alcohol: Occasionally Drugs: Denies Drug Use Lives In: Home Constitutional: denies: chills, diaphoresis, fatigue, fever, malaise, sweats, weakness, others EENTM: denies: blurred vision, double vision, ear bleeding, ear discharge, ear drainage, ear pain, ear ringing, eye pain, eye redness, hearing loss, mouth pain, mouth swelling, nasal discharge, nose bleeding, nose congestion, nose pain, photophobia, tearing, throat pain, throat swelling, voice changes, others Respiratory: denies: cough, hemoptysis, orthopnea, SOB at rest, shortness of breath, SOB with excertion, stridor, wheezing, others Cardiovascular: denies: chest pain, dizzy spells, diaphoresis, Dyspnea on exertion, edema, irregular heart beat, left arm pain, lightheadedness, palpitations, PND, syncope, others Gastrointestinal: denies: abdomen distended, abdominal pain, blood streaked bowels, constipated, diarrhea, dysphagia, difficulty swallowing, hematemesis, melena, nausea, poor appetite, poor fluid intake, rectal bleeding, rectal pain, vomiting, others Genitourinary: denies: abnormal vagina bleeding, burning, dyspareunia, dysuria, flank pain, frequency, hematuria, incontinence, pain, , vagina discharge, urgency, others Neurological: denies: dizziness, fainting, headache, left sided numbness, left sided weakness, numbness, paresthesia, pre-existing deficit, right sided numbness, right sided weakness, seizure, speech problems, tingling, tremors, weakness, others Musculoskeletal: reports: joint pain (L knee); denies: back pain, gout, joint swelling, muscle pain, muscle stiffness, neck pain, others Integumetry: denies: bruises, change in color, change in hair/nails, dryness, laceration, lesions, lumps, rash, wounds, others Allergic/Immunocompromised: denies: Difficulty Healing, Frequent Infections, Hives, Itching, others Hematologic/Lymphatic: denies: anemia, blood clots, easy bleeding, easy bruising, swollen glands, others Endocrine: denies: excessive hunger, excessive sweating, excessive thirst, excessive urination, flushing, intolerance to cold, intolerance to heat, une xplained weight gain, unexplained weight loss, others Psychiatric: denies: anxiety, bipolar disorder, depression, hopeless, panic disorder, schizophrenia, sleepless, suicidal, others All Other Systems: Reviewed and Negative Physical Exam General Appearance: No Apparent Distress, Normal HEENT: Normal ENT Inspection, Pharynx Normal, TMs Normal Neck: Full Range of Motion, Non-Tender, Normal, Normal Inspection Respiratory: Chest Non-Tender, Lungs Clear, No Accessory Muscle Use, No Respiratory Distress, Normal Breath Sounds Cardiovascular: No Edema, No JVD, No Murmur, No Gallop, Normal Peripheral Pul ses, Regular Rate/Rhythm Breast Exam: Deferred Gastrointestinal: No Organomegaly, Non Tender, No Pulsatile Mass, Normal Bowel Sounds, Soft Genitalia: Deferred Pelvic: Deferred Rectal: Deferred Extremities: Other (L knee point tenderness, no swelling or edema noted) Musculoskeletal : Apperance: Normal Neurologic: Alert, emblem fuser tender II-XII nml as Tested, No Motor Deficits, Normal Affect, Normal Mood, No Sensory Deficits Cerebellar Function: Normal Reflexes: Normal Skin: Dry, Normal Color, Warm Lymphatic: No Adenopathy Was a procedure done? Was a procedure done?: No Differential Diagnosis EXT Differential Diagnosis: Sprain, Dislocation, Gout, DJD, Strain, Rheumatoid, Arthritis, Bursitis, Other (septic joint) X-Ray, Labs, Meds, VS Vital Signs Date Time Temp Pulse Resp B/P (MAP) Pulse Ox O2 Delivery O2 Flow Rate FiO2 03/04/24 12:15 98.1 72 16 143/81 (101) 96 Current Medications Medications (Trade) Dose Ordered Sig/Dank Route Start Time Stop Time Status Last Admin Ketorolac Tromethamine (Toradol Injection) 60 mg ONCE ONCE IM 03/04/24 12:30 03/04/24 12:31 DC 03/04/24 14:55 Acetaminophen/ Hydrocodone Bitart (Ewing 5/325MG Tab) 1 tab ONCE ONCE PO 03/04/24 12:30 03/04/24 12:31 DC 03/04/24 14:54 Time of 1ST Reevaluation: 14:50 Reevaluation 1ST: Unchanged Time of 2ND Reevaluation: 15:52 Reevaluation 2ND: Improved Patient Education/Counseling: Diagnosis, Treatment, Prognosis, Need For Follow Up Family Education/Counseling: No Family Present Additional Information pt has chronic knee pain and usually gets an intraarticular steroid injection, but will get this with her doctor. her pain will be controlled here then discharged with a prescription med recorde review showed pt was last in the hospital on 11/30 Departure 1 Departure Time of Disposition: 15:52 Impression: Primary Impression: Arthritis Disposition: 01 HOME / SELF CARE / HOMELESS Condition: Good e-Prescriptions Hydrocodone-Acetaminophen (Hydrocodone Bitartrate/AC 5-325 mg) 1 Tab Tab 1 TAB PO Q8HP PRN for 3 Days, #9 TAB Prov: CRISELDA SKINNER MD 03/04/24 Discharged With: Self Critical Care Note Critical Care Time?: No Stability Stability form required: No Heart Score Heart Score: Heart Score Response (Comments) Value History N/A 0 EKG N/A 0 Age N/A 0 Risk Factors N/A 0 Troponin N/A 0 Total 0 I personally scribed for CRISELDA SKINNER MD ([facility]) on 03/04/24 at 14:19. Electronically submitted by Chiquita Jimenez ([email or web address]). CRISELDA SKINNER MD Mar 04, 2024 14:19
[2024-03-04 14:50] VITALS: PULSE 70; RESP 16; O2SAT 97
[2024-03-04] MEDS: HYDROcodone-ACET 5/325MG TAB PO ONE (14:54)
[2024-03-04] MEDS: KETOROLAC TROMETH 60MG/2ML VIAL IM ONE (14:55)
[2024-03-04] MEDS ORDERED: HYDR-4902 PO (15:53)
[2024-03-04 16:10] VITALS: BP 168/96; PULSE 65; RESP 16; TEMP 98.4; O2SAT 95
== END 2024-03-04 16:10 | disposition home or self-care (01) ==
LOC: ER 11:59
DX: M17.12 Unilateral primary osteoarthritis, left knee (principal); I10 Essential (primary) hypertension; Z79.84 Long term (current) use of oral hypoglycemic drugs; Z79.899 Other long term (current) drug therapy; Z86.73 Personal history of transient ischemic attack (TIA), and cerebral infarction without residual deficits; Z87.11 Personal history of peptic ulcer disease; Z98.890 Other specified postprocedural states
CPT/HCPCS: 96372; 99283; J1885

== ENCOUNTER 2024-03-29 10:13 | Day surgery (SDC) | payer OTHER ==
[2024-03-23 11:33] LABS: Basophils # (auto) 0 10 ^3/uL (0-0.2); Basophils % (auto) 0.4 % (0.0-2.0); Eosinophils # (auto) 0 10 ^3/uL (0-0.8); Eosinophils % (auto) 0.3 % (0.0-7.0); Hematocrit 43.3 % (36.0-46.0); Hemoglobin 14.4 g/dL (12.2-16.2); Lymphocytes # (auto) 1.8 10 ^3/uL (0.4-5.4); Lymphocytes % (auto) 18.7 % (10.0-50.0); Mean Corpuscular Hemoglobin 29.8 pg (28.0-32.0); Mean Corpuscular Hgb Conc. 33.2 g/dL (32.0-36.0); Mean Corpuscular Volume 89.8 fL (80.0-100.0); Monocytes # (auto) 0.7 10 ^3/uL (0-1.3); Neutrophils % (auto) 73.6 % (37.0-80.0); Platelet Count (auto) 295 10^3/uL (140-450); Red Blood Cells 4.83 10^6/uL (4.0-5.20); Red Cell Distribution Width 14.5 % (11.8-14.3); White Blood Cell 9.5 10^3/uL (4.4-10.8)
[2024-03-23 11:48] LABS: INR 1.01 (0.9-1.15); Partial Thromboplastin Time 26.2 SEC (24.5-34.5); Prothrombin Time 10.7 sec (9.3-11.8)
[2024-03-23 12:00] LABS: Albumin 4.7 g/dL (3.2-4.8); Anion Gap 7 (5-15); Aspartate Aminotransferase 26 U/L (13-40); BUN/Creatinine Ratio 8.8 (10.0-20.0); Bilirubin, Total 0.6 mg/dL (0.2-1.0); Carbon Dioxide 29 mmol/L (20-31); Chloride 106 mmol/L (98-107); Potassium 3.7 mmol/L (3.5-5.1); Sodium 142 mmol/L (136-145); Total Protein 7.7 g/dL (5.7-8.2)
[2024-03-23 12:01] LABS: Alanine Aminotransferase 59 U/L (7-40); Alkaline Phosphatase 152 U/L (46-116); Blood Urea Nitrogen 7 mg/dL (9-23); Glucose 107 mg/dL (74-106)
[~2024-03-29] VITALS: Ht 157.5 cm; Wt 78.9 kg
[~2024-03-29 10:13] MED LIST changes: -EMPA1TAB3 PO; -LEVO500T91 PO; -METO-158 PO; -METR-344 PO; -ROSU20TA14 PO; +SEMA3TAB2 PO
[2024-03-29] MEDS ORDERED: SODIUM CHLORIDE LOCK 10 ML ONE (10:34)
[2024-03-29 12:18] VITALS: PULSE 63; RESP 19; O2SAT 99
[2024-03-29] MEDS: LIDOCAINE VISCOUS 2% 15ML UD ONE (12:21)
[2024-03-29] MEDS: fentaNYL CITRATE 100 MCG/2 ML VL ONE (12:22)
[2024-03-29] MEDS: diphenhdrAMINE HCL 50 MG/1 ML VL ONE (12:22)
[2024-03-29] MEDS: MIDAZOLAM HCL 5 MG/ML-1ML VIAL ONE (12:22)
[2024-03-29 12:34] VITALS: BP 174/92; PULSE 70; RESP 12; TEMP 98; O2SAT 95
--- NOTE | 2024-03-29 12:36 | DVHOP2 ---
Operative Report DATE OF OPERATION: 03/29/24 PROCEDURE: Upper Endoscopy with biopsy. PREOPERATIVE INDICATION: The patient is a 64 -year-old female undergoing endoscopy for chronic GERD POSTOPERATIVE DIAGNOSES: 1. 2 cm sliding-type hiatal hernia with slightly irregular squamocolumnar junction minimal grade a erosive esophagitis 2. Mild gastritis with some hyperemia erythema PROCEDURE PERFORMED BY: Almaz Alejandro GI NURSE: Rina SCOPE: Olympus videoendoscope. ASA CLASS: 2. PREOPERATIVE MEDICATIONS: Versed 3 mg, Fentanyl 50 mcg, Benadryl 50 mg I administered moderate sedation throughout this _10_ minutes procedure. An independent trained observer pushed medications at my direction, and monitored the patient's level of consciousness and physiological status throughout. PROCEDURE IN DETAIL: After obtaining an informed consent, the patient was placed on left lateral decubitus position. The patient was then sedated with the above medications. A bite block was placed between her teeth. The endoscope was then passed through the oropharynx, into the esophagus, and through the stomach and pylorus up to the second and third part of the duodenum. The endoscope was then withdrawn. The 2nd and 3rd part of the duodenum and the duodenal bulb were normal. Duodenal biopsies were obtained. The pre-pyloric area antrum and body showed mild gastritis with some hyperemia erythema and mucosal edema. Gastric biopsies were obtained On retroflexion the fundus cardia and angularis were normal. The endoscope was then withdrawn into the distal esophagus. Patient had a 2 cm sliding-type hiatal hernia with slightly irregular squamocolumnar junction minimal grade a erosive esophagitis. GE junction biopsies were obtained. The remaining distal and proximal esophagus and oropharynx were unremarkable The patient tolerated the procedure well without difficulty. COMPLICATIONS : None SPECIMENS: Duodenal biopsies Gastric biopsies GE junction biopsies DISPOSITION: Stable D/C to home PLAN: 1. Await for biopsy results 2. Will place pt on Protonix 40 mg p.o. daily 3. Lifestyle and dietary modifications for GERD 4. Avoid aspirin NSAIDs smoking alcohol 5. Resume GI soft diet advance as tolerated 6. Outpatient follow up with me in 4-6 weeks to review results and discuss further management ALMAZ ALEJANDRO MD Mar 29, 2024 12:35
[2024-03-29 12:44] VITALS: PULSE 64; RESP 12; O2SAT 99
== END 2024-03-29 13:14 | disposition home or self-care (01) ==
LOC: GI 10:13
PROVIDERS: ATTEND Internal Medicine Gastroenterology
DX: K21.00 Gastro-esophageal reflux disease with esophagitis, without bleeding (principal); K22.10 Ulcer of esophagus without bleeding; K29.50 Unspecified chronic gastritis without bleeding; K44.9 Diaphragmatic hernia without obstruction or gangrene; B96.81 Helicobacter pylori [H. pylori] as the cause of diseases classified elsewhere; I10 Essential (primary) hypertension; Z79.899 Other long term (current) drug therapy; Z98.891 History of uterine scar from previous surgery; Z98.890 Other specified postprocedural states; Z96.659 Presence of unspecified artificial knee joint
CPT/HCPCS: 36415; 43239; 80053; 82962; 85025; 85610; 85730; 88305; 88312; 88342; J1200; J2250; J3010; J7030

== ENCOUNTER → 2024-05-18 | Outpatient (CLI) | payer OTHER ==
--- NOTE | 2024-05-18 14:59 | DVH ---
EXAM: NM NM BONE 3 PHASE History: PRIMARY OA OF LEFT KNEE Comparison Study: None available TECHNIQUE: Immediately after the radiopharmaceutical, flow images of the were acquired, followed by blood pool images of the knees. Then, approximately 3 hours later, additional images of the were acquired. Anterior and posterior whole body images were also acquired. CONTRAST MEDIA AND RADIOPHARMACEUTICALS: FINDINGS: Photopenia associated with the right knee suggestive of total knee replacement. Flow images demonstrate symmetric uptake in both knees. Blood pool images demonstrate no areas of hyperemia. Delayed images demonstrate increased radiotracer uptake along the medial aspect of the left knee . IMPRESSION: 1. Increased radiotracer uptake along the medial aspect of the left knee only visualized on the 3 hang r delayed images is favored to reflect degenerative changes. 2. Right total knee replacement without abnormal radiotracer uptake.
== END | disposition home or self-care (01) ==
LOC: XYW 09:04
PROVIDERS: ATTEND Orthopaedic Surgery Adult Reconstructive Orthopaedic Surgery
DX: M17.12 Unilateral primary osteoarthritis, left knee (principal); Z96.652 Presence of left artificial knee joint
CPT/HCPCS: 78315; A9503

== ENCOUNTER → 2024-06-01 | Outpatient (CLI) | payer OTHER ==
[2024-06-01 09:52] LABS: Urine Bacteria None Seen /hpf (None Seen)
[2024-06-01 10:15] LABS: Urine Blood 1+ /uL (Negative); Urine Clarity Turbid (Clear); Urine Color Yellow (Yellow); Urine Mucus MODERATE (None Seen); Urine Protein, UAD TRACE (Negative); Urine Specific Gravity 1.027 (1.001-1.035); Urine Squamous Epithelial Cell FEW /hpf (<5); Urine Urobilinogen Normal (Negative); Urine WBC 3 /HPF (0-5); Urine pH 5.5 (5.0-9.0)
[2024-06-01 10:25] LABS: Basophils # (auto) 0 10 ^3/uL (0-0.2); Basophils % (auto) 0.6 % (0.0-2.0); Eosinophils # (auto) 0 10 ^3/uL (0-0.8); Eosinophils % (auto) 0.6 % (0.0-7.0); Hemoglobin 14.1 g/dL (12.2-16.2); Lymphocytes # (auto) 1.6 10 ^3/uL (0.4-5.4); Lymphocytes % (auto) 21.7 % (10.0-50.0); Mean Corpuscular Hemoglobin 30.5 pg (28.0-32.0); Mean Corpuscular Hgb Conc. 33.7 g/dL (32.0-36.0); Mean Corpuscular Volume 90.5 fL (80.0-100.0); Monocytes # (auto) 0.4 10 ^3/uL (0-1.3); Monocytes % (auto) 5.4 % (0.0-12.0); Neutrophils # (auto) 5.3 10 ^3/uL (1.6-8.6); Neutrophils % (auto) 71.7 % (37.0-80.0); Platelet Count (auto) 302 10^3/uL (140-450); Red Blood Cells 4.64 10^6/uL (4.0-5.20); Red Cell Distribution Width 14.8 % (11.8-14.3); White Blood Cell 7.3 10^3/uL (4.4-10.8)
[2024-06-01 10:41] LABS: Anion Gap 8 (5-15); BUN/Creatinine Ratio 12.2 (10.0-20.0); Blood Urea Nitrogen 10 mg/dL (9-23); Chloride 103 mmol/L (98-107); LDL Cholesterol 83 mg/dL (< 100); Potassium 4.3 mmol/L (3.5-5.1); Sodium 143 mmol/L (136-145); Total Protein 7.6 g/dL (5.7-8.2); Triglycerides 121 mg/dL (< 150)
[2024-06-01 10:42] LABS: Aspartate Aminotransferase 29 U/L (13-40); Cholesterol 175 mg/dL (< 200)
[2024-06-01 10:43] LABS: Alanine Aminotransferase 77 U/L (7-40); Albumin 4.8 g/dL (3.2-4.8); Alkaline Phosphatase 126 U/L (46-116); Carbon Dioxide 32 mmol/L (20-31); Glucose 132 mg/dL (74-106); HDL Cholesterol 67 mg/dL (40-59)
[2024-06-01 11:39] LABS: Creatinine, Urine 221.47 mg/dL (30.0-125.0)
== END | disposition home or self-care (01) ==
LOC: LAB 09:37
PROVIDERS: ATTEND Internal Medicine
DX: I10 Essential (primary) hypertension (principal); E78.2 Mixed hyperlipidemia; K76.0 Fatty (change of) liver, not elsewhere classified; R74.8 Abnormal levels of other serum enzymes; E66.89 Other obesity not elsewhere classified
CPT/HCPCS: 36415; 80053; 80061; 81001; 82043; 82570; 83036; 84439; 84443; 85025

== ENCOUNTER 2024-08-15 11:18 | Emergency (ER) | payer MEDICARE, OTHER ==
[~2024-08-15] VITALS: Ht 157.5 cm; Wt 81.3 kg
[2024-08-15 11:30] VITALS: BP 159/87; TEMP 98.4
[2024-08-15] MEDS: TETRACAINE HCL 0.5% OPTH(EYE) SOLN 4ML LEFTEYE ONE (11:57)
[2024-08-15] MEDS: PROPARACAINE HCL 0.5% OPTH(EYE) SOL 15ML OP ONE (11:57)
[2024-08-15] MEDS: FLUORESCEIN SOD OPTH TEST STRIP OP ONE (11:57)
[2024-08-15] MEDS: TETRAHYDROZOLINE HCL 0.05% OPTH(EYE)SOL OP ONE (11:57)
--- NOTE | 2024-08-15 12:16 | ED.PDOC ---
History of Present Illness HPI Comments 64-year-old female presents to the ER with prior medical history of hypertension, high lipids, PUD, TIA; surgical history of in the chief complaint of eye pain. Patient reports the her left eye was scratched by her 5-month-old grandson. Patient's blood pressure in triage was 159/87. Patient notes that she will want to the eye doctor but they are currently closed on Mondays. Denies chills, fever, N/V/D, SOB, CP. No other associated symptoms, modifiers, recent injuries or sick contacts present at this time. Chief Complaint: Eye Problem Time Seen by MD: 11:50 Primary Care Provider: CODY Whipple Notes: Nurses Notes, Medications, Allergies Allergies: Coded Allergies: NO KNOWN ALLERGIES (Unverified , 11/14/14) Home Meds Reported Medications Semaglutide (Rybelsus) Unknown Strength Tab, PO, TAB 03/24/24 Esomeprazole Magnesium Trihydr (Nexium) 20 Mg Cap, 1 CAP PO BID, #30 CAP 2 Refills 11/21/23 Losartan Potassium (Losartan Potassium) 100 Mg Tab, 100 MG PO DAILY, MG 11/20/23 Information Source: Patient Mode of Arrival: Ambulatory Severity: Moderate Timing: Hours Duration: Since onset, Hours Prehospital treatment: None Past Medical History PAST MEDICAL HISTORY: High Lipids, HTN, PUD, TIA 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 Family History Family History: Reviewed,noncontributory to illness, Unknown Social History Smoker: Non-Smoker Alcohol: Denies ETOH Use Drugs: Denies Drug Use Lives In: Home Constitutional: denies: chills, diaphoresis, fatigue, fever, malaise, sweats, weakness, others EENTM: reports: eye pain, eye redness; denies: blurred vision, double vision, ear bleeding, ear discharge, ear drainage, ear pain, ear ringing, hearing loss, mouth pain, mouth swelling, nasal discharge, nose bleeding, nose congestion, nose pain, photophobia, tearing, throat pain, throat swelling, voice changes, others Respiratory: denies: cough, hemoptysis, orthopnea, SOB at rest, shortness of breath, SOB with excertion, stridor, wheezing, others Cardiovascular: denies: chest pain, dizzy spells, diaphoresis, Dyspnea on exertion, edema, irregular heart beat, left arm pain, lightheadedness, palpitations, PND, syncope, others Gastrointestinal: denies: abdomen distended, abdominal pain, blood streaked bowels, constipated, diarrhea, dysphagia, difficulty swallowing, hematemesis, melena, nausea, poor appetite, poor fluid intake, rectal bleeding, rectal pain, vomiting, others Genitourinary: denies: abnormal vagina bleeding, burning, dyspareunia, dysuria, flank pain, frequency, hematuria, incontinence, pain, , vagina discharge, urgency, others Neurological: denies: dizziness, fainting, headache, left sided numbness, left sided weakness, numbness, paresthesia, pre-existing deficit, right sided numbness, right sided weakness, seizure, speech problems, tingling, tremors, weakness, others Musculoskeletal: denies: back pain, gout, joint pain, joint swelling, muscle pain, muscle stiffness, neck pain, others Integumetry: denies: bruises, change in color, change in hair/nails, dryness, laceration, lesions, lumps, rash, wounds, others Allergic/Immunocompromised: denies: Difficulty Healing, Frequent Infections, Hives, Itching, others Hematologic/Lymphatic: denies: anemia, blood clots, easy bleeding, easy bruising, swollen glands, others Endocrine: denies: excessive hunger, excessive sweating, excessive thirst, excessive urination, flushing, intolerance to cold, intolerance to heat, unexplained weight gain, unexplained weight loss, others Psychiatric: denies: anxiety, bipolar disorder, depression, hopeless, panic disorder, schizophrenia, sleepless, suicidal, others All Other Systems: Reviewed and Negative Physical Exam General Appearance: No Apparent Distress, Normal HEENT: Cornea (L) (Corneal abrasion), Normal ENT Inspection, Pharynx Normal, TMs Normal Neck: Full Range of Motion, Non-Tender, Normal, Normal Inspection Respiratory: Chest Non-Tender, Lungs Clear, No Accessory Muscle Use, No Respiratory Distress, Normal Breath Sounds Cardiovascular: No Edema, No JVD, No Murmur, No Gallop, Normal Peripheral Pulses, Regular Rate/Rhythm Breast Exam: Deferred Gastrointestinal: No Organomegaly, Non Tender, No Pulsatile Mass, Normal Bowel Sounds, Soft Genitalia: Deferred Pelvic: Deferred Rectal: Deferred Extremities: No calf tenderness, Normal capillary refill, Normal inspection, Normal range of motion, Non-tender, No pedal edema Musculoskeletal : Apperance: Normal Neurologic: Alert, work measurement engineer II-XII nml as Tested, No Motor Deficits, Normal Affect, Normal Mood, No Sensory Deficits Cerebellar Function: Normal Reflexes: Normal Skin: Dry, Normal Color, Warm Lymphatic: No Adenopathy Was a procedure done? Was a procedure done?: No Differential Dx Considerations may include: Corneal abrasion, conjunctivitis, X-Ray, Labs, Meds, VS Vital Signs Date Time Temp Pulse Resp B/P (MAP) Pulse Ox O2 Delivery O2 Flow Rate FiO2 08/15/24 11:30 98.4 63 18 159/87 (111) 98 98.4 08/15/24 11:30 98.4 63 18 159/87 (111) 98 98.4 Time of 1ST Reevaluation: 12:20 Reevaluation 1ST: Unchanged Patient Education/Counseling: Diagnosis, Treatment, Prognosis Family Education/Counseling: No Family Present Departure 1 Departure Time of Disposition: 12:24 (Patient with a corneal abrasion. We will discharge patient home with antibiotics and outpatient follow up) Impression: Primary Impression: Corneal abrasion Qualified Codes: S05.02XA - Injury of conjunctiva and corneal abrasion without foreign body, left eye, initial encounter Disposition: 01 HOME / SELF CARE / HOMELESS Condition: Stable Additional Instructions: You have a corneal abrasion. This is a scratch of your eye. You were prescribed antibiotic ointment. Please take as directed. You should follow up with an eye doctor this week. If your symptoms worsen or you have any other concerns then please return to the ER. e-Prescriptions Erythromycin (Erythromycin) 5 Mg/Gm Oin 1 MG OP QID for 7 Days, #1 OIN Prov: ALAN DAMON MD 08/15/24 Discharged With: Self Critical Care Note Critical Care Time?: No Stability Stability form required: No I personally scribed for ALAN DAMON MD ([email or web address]) on 08/15/24 at 12:16. Electronically submitted by Hunter Soto ([email or web address]). ALAN DAMON MD Aug 15, 2024 12:16
[2024-08-15 12:21] VITALS: PULSE 63; RESP 18; O2SAT 98
[2024-08-15] MEDS ORDERED: ERY05OO OP (12:25)
[2024-08-15] MEDS: ERYTHROMY OPTH OINT 5mg/gm 1gm or 3.5gm tube OP ONE (12:30)
== END 2024-08-15 12:30 | disposition home or self-care (01) ==
LOC: ER 11:18
DX: S05.02XA Injury of conjunctiva and corneal abrasion without foreign body, left eye, initial encounter (principal); E78.5 Hyperlipidemia, unspecified; I10 Essential (primary) hypertension; Z79.899 Other long term (current) drug therapy; X58.XXXA Exposure to other specified factors, initial encounter; Y93.89 Activity, other specified; Y92.89 Other specified places as the place of occurrence of the external cause; Y99.8 Other external cause status

== ENCOUNTER → 2024-09-05 | Outpatient (CLI) | payer MEDICARE ==
[~2024-09-05] MED LIST changes: +ERY05OO OP
[2024-09-05 13:00] LABS: Urine Bacteria FEW /hpf (None Seen); Urine Blood TRACE /uL (Negative); Urine Clarity Clear (Clear); Urine Color Yellow (Yellow); Urine Mucus FEW (None Seen); Urine Protein, UAD Negative (Negative); Urine Squamous Epithelial Cell FEW /hpf (<5); Urine Urobilinogen Normal (Negative); Urine WBC 1 /HPF (0-5)
[2024-09-05 13:14] LABS: Anion Gap 8 (5-15); Aspartate Aminotransferase 37 U/L (13-40); BUN/Creatinine Ratio 17.1 (10.0-20.0); Blood Urea Nitrogen 14 mg/dL (9-23); Calcium 10.3 mg/dL (8.7-10.4); Carbon Dioxide 30 mmol/L (20-31); Chloride 104 mmol/L (98-107); Potassium 4.1 mmol/L (3.5-5.1); Sodium 142 mmol/L (136-145); Total Protein 7.5 g/dL (5.7-8.2)
[2024-09-05 13:15] LABS: Alanine Aminotransferase 54 U/L (7-40); Albumin 4.8 g/dL (3.2-4.8); Alkaline Phosphatase 124 U/L (46-116); Bilirubin, Total 0.5 mg/dL (0.2-1.0); Glucose 171 mg/dL (74-106)
== END | disposition home or self-care (01) ==
LOC: LAB 11:46
PROVIDERS: ATTEND Internal Medicine
DX: I13.0 Hypertensive heart and chronic kidney disease with heart failure and stage 1 through stage 4 chronic kidney disease, or unspecified chronic kidney disease (principal); E11.22 Type 2 diabetes mellitus with diabetic chronic kidney disease; N18.2 Chronic kidney disease, stage 2 (mild); I50.9 Heart failure, unspecified; E11.69 Type 2 diabetes mellitus with other specified complication; E78.5 Hyperlipidemia, unspecified; K76.0 Fatty (change of) liver, not elsewhere classified; F10.21 Alcohol dependence, in remission
CPT/HCPCS: 36415; 80053; 81001; 83036

== ENCOUNTER 2024-11-24 16:50 | Emergency (ER) | payer MEDICARE ==
[~2024-11-24] VITALS: Ht 157.5 cm; Wt 83.6 kg
[2024-11-24 16:54] VITALS: BP 150/105; RESP 20; TEMP 98.8; O2SAT 97
[2024-11-24] MEDS: HYDROcodone-ACET 10/325MG TAB PO ONE (17:15)
--- NOTE | 2024-11-24 17:19 | ED.PDOC ---
HPI Comments Patient is a morbidly obese 64 year old female presenting to the ED with chief complaint of chest pain. Patient reports that she has been experiencing intermittent left sided chest pain for a long time, however, it recently became severely sharp this morning, persisting till now with associated left sided headache. Patient relays that her blood pressure has been consistently running very high with her highest being last night at 210/110 despite taking all of her medication as directed by her manuscript editor Dr. Gold. Patient denies any SOB, dizziness, syncope, N/V, numbness, weakness, or abdominal pain. Chief Complaint: Chest Pain Time Seen by MD: 17:16 Primary Care Provider: BARBARA Whipple Notes: Nurses Notes, Medications, Allergies Allergies: Coded Allergies: NO KNOWN ALLERGIES (Unverified , 11/14/14) Home Meds Active Scripts Erythromycin (Erythromycin) 5 Mg/Gm Oin, 1 MG OP QID for 7 Days, #1 OIN Prov:ALAN DAMON MD 08/15/24 Reported Medications Semaglutide (Rybelsus) Unknown Strength Tab, PO, TAB 03/24/24 Esomeprazole Magnesium Trihydr (Nexium) 20 Mg Cap, 1 CAP PO BID, #30 CAP 2 Refills 11/21/23 Losartan Potassium (Losartan Potassium) 100 Mg Tab, 100 MG PO DAILY, MG 11/20/23 Information Source: Patient Mode of Arrival: Ambulatory Severity: Moderate Timing: Days Duration: Since onset Prehospital treatment: None Location: Chest (L) Radiation: No Radiation Quality: Sharp Onset: At Rest Cardiac Risk Factors: HTN History of: Similar pain in past Past Medical History PAST MEDICAL HISTORY: High Lipids, HTN, PUD, TIA 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 CRYSTAL GRINDER History Family History Family History: Reviewed,noncontributory to illness, Unknown Social History Smoker: Non-Smoker Alcohol: Denies ETOH Use Drugs: Denies Drug Use Lives In: Home Constitutional: denies: chills, diaphoresis, fatigue, fever, malaise, sweats, weakness, others EENTM: denies: blurred vision, double vision, ear bleeding, ear discharge, ear drainage, ear pain, ear ringing, eye pain, eye redness, hearing loss, mouth pain, mouth swelling, nasal discharge, nose bleeding, nose congestion, nose pain, photophobia, tearing, throat pain, throat swelling, voice changes, others Respiratory: denies: cough, hemoptysis, orthopnea, SOB at rest, shortness of breath, SOB with excertion, stridor, wheezing, others Cardiovascular: reports: chest pain; denies: dizzy spells, diaphoresis, Dyspnea on exertion, edema, irregular heart beat, left arm pain, lightheadedness, palpitations, PND, syncope, others Gastrointestinal: denies: abdomen distended, abdominal pain, blood streaked bowels, constipated, diarrhea, dysphagia, difficulty swallowing, hematemesis, melena, nausea, poor appetite, poor fluid intake, rectal bleeding, rectal pain, vomiting, others Genitourinary: denies: abnormal vagina bleeding, burning, dyspareunia, dysuria, flank pain, frequency, hematuria, incontinence, pain, , vagina discharge, urgency, others Neurological: reports: headache; denies: dizziness, fainting, left sided numbness, left sided weakness, numbness, paresthesia, pre-existing deficit, right sided numbness, right sided weakness, seizure, speech problems, tingling, tremors, weakness, others Musculoskeletal: denies: back pain, gout, joint pain, joint swelling, muscle pain, muscle stiffness, neck pain, others Integumetry: denies: bruises, change in color, change in hair/nails, dryness, laceration, lesions, lumps, rash, wounds, others Allergic/Immunocompromised: denies: Difficulty Healing, Frequent Infections, Hives, Itching, others Hematologic/Lymphatic: denies: anemia, blood clots, easy bleeding, easy br uising, swollen glands, others Endocrine: denies: excessive hunger, excessive sweating, excessive thirst, excessive urination, flushing, intolerance to cold, intolerance to heat, unexplained weight gain, unexplained weight loss, others Psychiatric: denies: anxiety, bipolar disorder, depression, hopeless, panic disorder, schizophrenia, sleepless, suicidal, others All Other Systems: Reviewed and Negative Physical Exam General Appearance: Moderate Distress (Moderate distress due to chest pain and headache concerns. Patient was moderately histrionic.) HEENT: Head (Unremarkable cranial evaluation. No signs of trauma. No skull depressions or deformities.), Normal ENT Inspection, Pharynx Normal, TMs Normal Neck: Full Range of Motion, Non-Tender, Normal, Normal Inspection Respiratory: Chest Non-Tender, Lungs Clear, No Accessory Muscle Use, No Respiratory Distress, Normal Breath Sounds, Other (Possible left lower lobe rhonchi appreciated auscultation. No accessory muscle use. No respiratory distress.) Cardiovascular: No Edema, No JVD, No Murmur, No Gallop, Normal Peripheral Pulse s, Regular Rate/Rhythm, Other (Unremarkable cardiac evaluation.) Breast Exam: Deferred Gastrointestinal: No Organomegaly, Non Tender, No Pulsatile Mass, Normal Bowel Sounds, Soft Genitalia: Deferred Pelvic: Deferred Rectal: Deferred Extremities: No calf tenderness, Normal capillary refill, Normal inspection, Normal range of motion, Non-tender, No pedal edema Musculoskeletal : Apperance: Normal Neurologic: Alert, No Motor Deficits, Normal Affect, Normal Mood, No Sensory Deficits Cerebellar Function: NOT DONE Reflexes: NOT DONE Skin: Dry, Normal Color, Warm Lymphatic: No Adenopathy Was a procedure done? Was a procedure done?: No CP Differential Dx Differential Diagnosis: A-fib, A-Flutter, AV Block 1st Degree, ND Differential Diagnosis: CHF, HTN Essential Differential Diagnosis: Angina, Costochondritis X-Ray, Labs, Meds, VS Vital Signs Date Time Temp Pulse Resp B/P (MAP) Pulse Ox O2 Delivery O2 Flow Rate FiO2 11/24/24 17:47 65 11/24/24 16:55 73 11/24/24 16:54 98.8 80 20 150/105 97 98.8 Lab Test 11/24/24 19:15 11/24/24 18:32 11/24/24 17:01 Range/Units Urine Color Light-yellow Yellow Urine Clarity Clear Clear Urine pH 5.0 5.0-9.0 Urine Specific [place] 1.017 1.001-1.035 Urine Protein Negative Negative Urine Ketones Negative Negative Urine Blood Trace H Negative /uL Urine Nitrite Negative Negative Urine Bilirubin Negative Negative Urine Urobilinogen Normal Negative mg/dL Urine Leukocyte Esterase 3+ Negative /uL Urine RBC 3 0 - 4 /hpf Urine Microscopic WBC 8 H 0-5 /HPF Urine Squamous Epithelial Cells Few <5 /hpf Urine Bacteria None seen None Seen /hpf Urine Mucus Few None Seen Urine Glucose Normal Normal mg/dL Troponin I High Sensitivity < 3 L < 3 L </=34 ng/L White Blood Count 9.4 4.4-10.8 10^3/uL Red Blood Count 4.63 4.0-5.20 10^6/uL Hemoglobin 14.1 12.2-16.2 g/dL Hematocrit 40.4 36.0-46.0 % Mean Corpuscular Volume 87.2 80.0-100.0 fL Mean Corpuscular Hemoglobin 30.4 28.0-32.0 pg Mean Corpuscular Hemoglobin Concent 34.8 32.0-36.0 g/dL Red Cell Distribution Width 14.2 11.8-14.3 % Platelet Count 344 140-450 10^3/uL Mean Platelet Volume 8.7 6.9-10.8 fL Neutrophils (%) (Auto) 50.3 37.0-80.0 % Lymphocytes (%) (Auto) 40.1 10.0-50.0 % Monocytes (%) (Auto) 7.3 0.0-12.0 % Eosinophils (%) (Auto) 1.1 0.0-7.0 % Basophils (%) (Auto) 1.2 0.0-2.0 % Neutrophils # (Auto) 4.7 1.6-8.6 10 ^3/uL Lymphocytes # (Auto) 3.8 0.4-5.4 10 ^3/uL Monocytes # (Auto) 0.7 0-1.3 10 ^3/uL Eosinophils # (Auto) 0.1 0-0.8 10 ^3/uL Basophils # (Auto) 0.1 0-0.2 10 ^3/uL Nucleated Red Blood Cells 0.1 % Sodium Level 141 136-145 mmol/L Potassium Level 4.0 3.5-5.1 mmol/L Chloride Level 103 98-107 mmol/L Carbon Dioxide Level 29 20-31 mmol/L Anion Gap 9 5-15 Blood Urea Nitrogen 10 9-23 mg/dL Creatinine 0.77 0.550-1.02 mg/dL Glomerular Filtration Rate Calc 86 >90 mL/min BUN/Creatinine Ratio 13.0 10.0-20.0 Serum Glucose 163 H 74-106 mg/dL Calcium Level 9.4 8.7-10.4 mg/dL [facility] [id number] [facility] [address] Ph: [phone] DIAGNOSTIC IMAGING Diagnostic Imaging Report : [id number] Signed PATIENT: WAYNE SILVER ACCT: [id number] UNIT: [id number] : 1960 LOC: ER ROOM / BED: / AGE / SEX: 64 / F ADM STATUS: REG ER SERVICE [id number] ORDERING PHYSICIAN: WALDO HURTADO PAC PROCEDURE(s): CXRP - CHEST PORTABLE REASON: Chest pain ORDER NUMBER(s): [id number], ACCESSION NUMBER(s): [id number] CHEST RADIOGRAPH Indication: Chest pain Technique: Single frontal view of the chest was obtained COMPARISON: CHEST TWO VIEWS ROUTINE on DOS: 09/30/21, CXR2 on DOS: 09/30/21, CHEST TWO VIEWS ROUTINE on DOS: 11/05/20, CHEST TWO VIEWS ROUTINE on DOS: 12/19/19, C HEST TWO VIEWS ROUTINE on DOS: 08/18/19 FINDINGS: Lines and Tubes: None Lungs: Increased interstitial prominence Pleura: No effusion. No pneumothorax. Cardiomediastinal contours: Unremarkable Bones: Unremarkable IMPRESSION: Increased interstital prominence. This may represent pulmonary vascular congestion and/or viral pneumonia. Clinical correlation advised. ATED BY: SANCHO ABREU MD DICTATED DATE/TIME: 11/24/241758 SIGNED BY: SANCHO ABREU MD SIGNED DATE/TIME: 11/24/241758 CC: X-Ray, Labs, Meds, VS Comment All studies performed the ED were evaluated by me personally. Serum studies were unremarkable for any systemic concerns. Urinalysis confirmed a urinary tract infection. EKG revealed a sinus rhythm with a rate of 65. Atrial premature complex was noted as well as LVH. AK interval of 150 and QT interval 409. Chest x-ray reveals some consolidation that may be disability representative of a pne umonia. Discuss the patient's chest pain concerns with Dr. Arevalo, her primary care. He advised the patient to follow up in his office tomorrow morning at 9:30 a.m. at this hospital in [address]. Time of 1ST Reevaluation: 22:09 Reevaluation 1ST: Improved Consultation: PCP, Cardiology Patient Education/Counseling: Diagnosis, Treatment Family Education/Counseling: Diagnosis, Treatment, No Family Present SEPSIS Sepsis Screen Date sepsis recognized/suspect: Nov 24, 2024 Time Sepsis recognized/suspect: 1655 Recent Procedure: No On Antibiotic Therapy: No Respiratory Rate >20: No Heart Rate >90: No Temp<36 C (96.8 F) or >38.3 C: No SBP <90 or MAP <65 mmHG: No New Acute Mental Status Change: No Is the patient on CPAP, BIPAP,: No Physician Orders Electrocardigram (11/24/24 19:52) Chest Portable (11/24/24 17:14) Levofloxacin Tablet (Levaquin Tablet) (11/24/24 22:15) Vital Signs Date Time Temp Pulse Resp B/P (MAP) Pulse Ox O2 Delivery O2 Flow Rate FiO2 11/24/24 17:47 65 11/24/24 16:55 73 11/24/24 16:54 98.8 80 20 150/105 97 98.8 Laboratory Tests Test 11/24/24 17:01 White Blood Count 9.4 10^3/uL (4.4-10.8) Departure 1 Departure Time of Disposition: 22:10 Impression: Primary Impression: Pneumonia Additional Impressions: Chest pain Acute UTI (urinary tract infection) Disposition: HOME / SELF CARE / HOMELESS Condition: Stable Additional Instructions: Patient has been advised to utilize antibiotics as directed until completion. Patient should follow up with Dr. Asif kendall tomorrow at this facility and go to the [facility] in [address] at 9:30 a.m. e-Prescriptions Ibuprofen Micronized (Ibuprofen) 800 Mg Tab 800 MG PO Q8HP PRN, #20 TAB Prov: WALDO HURTADO PAC 11/24/24 Levofloxacin Hemihydrate (LEVAQUIN 500 MG) 500 Mg Tab 1 TAB PO DAILY, #7 TAB Prov: WALDO HURTADO PAC 11/24/24 Discharged With: Self, Friend Critical Care Note Critical Care Time?: No Stability Stability form required: No Heart Score Heart Score: Heart Score Response (Comments) Value History Slightly Suspicious 0 EKG Normal 0 Age >65 2 Risk Factors >3 or Hx ASHD 2 Troponin Normal limit 0 Total 4 I personally scribed for WALDO HURTADO PAC ([email or web address]) on 11/24/24 at 17:19. Electronically submitted by Yobani Anderson ([email or web address]). I personally scribed for WALDO HURTADO PAC ([email or web address]) on 11/24/24 at 18:35. Electronically submitted by Yobani Anderson ([email or web address]). WALDO HURTADO PAC Nov 24, 2024 17:19
[2024-11-24 17:38] LABS: Hematocrit 40.4 % (36.0-46.0); Hemoglobin 14.1 g/dL (12.2-16.2); Mean Corpuscular Hemoglobin 30.4 pg (28.0-32.0); Mean Corpuscular Volume 87.2 fL (80.0-100.0); Nucleated Red Blood Cells % 0.1 %
[2024-11-24 17:46] LABS: Chloride 103 mmol/L (98-107); Potassium 4.0 mmol/L (3.5-5.1); Sodium 141 mmol/L (136-145)
[2024-11-24 17:47] VITALS: PULSE 65
[2024-11-24 17:47] LABS: Anion Gap 9 (5-15); Carbon Dioxide 29 mmol/L (20-31)
[2024-11-24 17:48] LABS: Calcium 9.4 mg/dL (8.7-10.4)
[2024-11-24 17:53] LABS: BUN/Creatinine Ratio 13.0 (10.0-20.0); Blood Urea Nitrogen 10 mg/dL (9-23)
--- NOTE | 2024-11-24 18:01 | DVH ---
CHEST RADIOGRAPH Indication: Chest pain Technique: Single frontal view of the chest was obtained COMPARISON: CHEST TWO VIEWS ROUTINE on DOS: 09/30/21, CXR2 on DOS: 09/30/21, CHEST TWO VIEWS ROUTINE on DOS: 11/05/20, CHEST TWO VIEWS ROUTINE on DOS: 12/19/19, CHEST TWO VIEWS ROUTINE on DOS: 08/18/19 FINDINGS: Lines and Tubes: None Lungs: Increased interstitial prominence Pleura: No effusion. No pneumothorax. Cardiomediastinal contours: Unremarkable Bones: Unremarkable IMPRESSION: Increased interstital prominence. This may represent pulmonary vascular congestion and/or viral pneum onia. Clinical correlation advised.
--- NOTE | 2024-11-24 18:05 | ECG ---
[facility] Test Date: 2024-11-24 Test Time: 17:44:55 Pat Name: WAYNE SILVER Department: ED Room: Gender: F [employer] Salesperson: ANDREW : 1960 Requested By: ALAN DAMON Order Number: [id number] Reading MD: Thanh Gold Measurements Intervals [place] Rate: 65 P: 32 WV: 150 QRS: -14 QRSD: 91 T: 0 QT: 409 QTc: 426 Interpretive Statements Sinus rhythm Atrial premature complex LVH with secondary repolarization abnormality Electronically Signed On 11-28-2024 18:38:39 PDT by Thanh Gold Please click the below link to view image of tracing.
--- NOTE | 2024-11-24 18:05 | ECG ---
[facility] Test Date: 2024-11-24 Test Time: 16:55:32 Pat Name: WAYNE SILVER Department: ED Room: Gender: F [id number] Tank Driver: alyssa : 1960 Requested By: ALAN DAMON Order Number: [id number] Reading MD: Thanh Gold Measurements Intervals [place] Rate: 73 P: -12 ID: [id number] QRS: -10 QRSD: 94 T: 10 QT: 416 QTc: 459 Interpretive Statements Sinus rhythm Low voltage, precordial leads LVH by voltage Borderline T abnormalities, inferior leads Electronically Signed On 11-28-2024 18:38:30 PDT by Thanh Gold Please click the below link to view image of tracing.
[2024-11-24 18:14] LABS: Glucose 163 mg/dL (74-106)
[2024-11-24 21:22] LABS: Urine Protein, UAD Negative (Negative)
[2024-11-24] MEDS ORDERED: LEVO500T91 PO (22:12)
[2024-11-24] MEDS ORDERED: IBUP-1455 PO (22:12)
[2024-11-24] MEDS ORDERED: levoFLOXacin 250 MG TAB PO ONE (22:15)
== END 2024-11-24 23:10 | disposition left against medical advice (07) ==
LOC: ER 16:50
DX: J18.9 Pneumonia, unspecified organism (principal); N39.0 Urinary tract infection, site not specified; R07.89 Other chest pain; E78.5 Hyperlipidemia, unspecified; E66.01 Morbid (severe) obesity due to excess calories; I10 Essential (primary) hypertension; Z87.11 Personal history of peptic ulcer disease; Z79.899 Other long term (current) drug therapy; Z86.73 Personal history of transient ischemic attack (TIA), and cerebral infarction without residual deficits; Z68.33 Body mass index [BMI] 33.0-33.9, adult
CPT/HCPCS: 36415; 71045; 80048; 81001; 84484; 85025; 93005

== ENCOUNTER 2024-12-01 13:25 | Outpatient (CLI) | payer MEDICARE ==
[~2024-12-01 13:25] MED LIST changes: +IBUP-1455 PO; +LEVO500T91 PO
[2024-12-01 14:29] LABS: Alanine Aminotransferase 30.0 U/L (7-40); Albumin 4.4 g/dL (3.2-4.8); Bilirubin, Total 0.8 mg/dL (0.2-1.0); Total Protein 7.3 g/dL (5.7-8.2)
[2024-12-01 14:51] LABS: Alkaline Phosphatase 120.0 U/L (46-116)
[2024-12-01 16:33] LABS: Bilirubin, Direct 0.2 mg/dL (<0.3)
== END 2024-12-01 17:00 | disposition home or self-care (01) ==
LOC: LAB 13:25
PROVIDERS: ATTEND Internal Medicine Gastroenterology
DX: K76.0 Fatty (change of) liver, not elsewhere classified (principal); Z79.899 Other long term (current) drug therapy
CPT/HCPCS: 36415; 80076; 83013; 83036

== ENCOUNTER 2025-01-16 09:47 | Inpatient (IN) | payer MEDICARE ==
[~2025-01-16] VITALS: Ht 157.5 cm; Wt 80.9 kg
--- NOTE | 2025-01-16 10:41 | ED.PDOC ---
History of Present Illness HPI Comments This is a 64 year old female presenting to the ED with chief complaint of generalized weakness. Patient reports that she was recently diagnosed with H. Pylori and has been placed on 3 different antibiotics, however, since then she has been experiencing increasing weakness with associated chest pain and SOB. Patient relays that she is fatigued with minimal exertion. Patient denies any N/V/D, abdominal pain, fever, or chills. Chief Complaint: General Weakness Time Seen by MD: 10:34 Primary Care Provider: BARBARA Whipple Notes: Nurses Notes, Medications, Allergies Allergies: Coded Allergies: NO KNOWN ALLERGIES (Unverified , 11/14/14) Home Meds Active Scripts Ibuprofen Micronized (Ibuprofen) 800 Mg Tab, 800 MG PO Q8HP PRN, #20 TAB Prov:WALDO HURTADO PAC 11/24/24 Levofloxacin Hemihydrate (LEVAQUIN 500 MG) 500 Mg Tab, 1 TAB PO DAILY, #7 TAB Prov:WALDO HURTADO PAC 11/24/24 Erythromycin (Erythromycin) 5 Mg/Gm Oin, 1 MG OP QID for 7 Days, #1 OIN Prov:ALAN DAMON MD 08/15/24 Reported Medications Semaglutide (Rybelsus) Unknown Strength Tab, PO, TAB 03/24/24 Esomeprazole Magnesium Trihydr (Nexium) 20 Mg Cap, 1 CAP PO BID, #30 CAP 2 Refills 11/21/23 Losartan Potassium (Losartan Potassium) 100 Mg Tab, 100 MG PO DAILY, MG 11/20/23 Information Source: Patient, Spouse Mode of Arrival: Ambulatory Severity: Moderate Timing: Days Duration: Since onset Prehospital treatment: None Past Medical History PAST MEDICAL HISTORY: DM, High Lipids, HTN, PUD, TIA Past Medical History (Other): H. 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 Family History Family History: Reviewed,noncontributory to illness, Unknown Social History Smoker: Non-Smoker Alcohol: Denies ETOH Use Drugs: Denies Drug Use Lives In: Home Constitutional: reports: fatigue, weakness; denies: chills, diaphoresis, fever, malaise, sweats, others EENTM: denies: blurred vision, double vision, ear bleeding, ear discharge, ear drainage, ear pain, ear ringing, eye pain, eye redness, hearing loss, mouth pain, mouth swelling, nasal discharge, nose bleeding, nose congestion, nose pain, photophobia, tearing, throat pain, throat swelling, voice changes, others Respiratory: reports: shortness of breath; denies: cough, hemoptysis, orthopnea, SOB at rest, SOB with excertion, stridor, wheezing, others Cardiovascular: reports: chest pain; denies: dizzy spells, diaphoresis, Dyspnea on exertion, edema, irregular heart beat, left arm pain, lightheadedness, palpitations, PND, syncope, others Gastrointestinal: denies: abdomen distended, abdominal pain, blood streaked bowels, constipated, diarrhea, dysphagia, difficulty swallowing, hematemesis, melena, nausea, poor appetite, poor fluid intake, rectal bleeding, rectal pain, vomiting, others Genitourinary: denies: abnormal vagina bleeding, burning, dyspareunia, dysuria, flank pain, frequency, hematuria, incontinence, pain, , vagina discharge, urgency, others Neurological: denies: dizziness, fainting, headache, left sided numbness, left sided weakness, numbness, paresthesia, pre-existing deficit, right sided numbness, right sided weakness, seizure, speech problems, tingling, tremors, weakness, others Musculoskeletal: denies: back pain, gout, joint pain, joint swelling, muscle pain, muscle stiffness, neck pain, others Integumetry: denies: bruises, change in color, change in hair/nails, dryness, laceration, lesions, lumps, rash, wounds, others Allergic/Immunocompromised: denies: Difficulty Healing, Frequent Infections, Hives, Itching, others Hematologic/Lymphatic: denies: anemia, blood clots, easy bleeding, easy bruising, swollen glands, others Endocrine: denies: excessive hunger, excessive sweating, excessive thirst, excessive urination, flushing, intolerance to cold, intolerance to heat, unexplained weight gain, unexplained weight loss, others Psychiatric: denies: anxiety, bipolar disorder, depression, hopeless, panic disorder, schizophrenia, sleepless, suicidal, others All Other Systems: Reviewed and Negative Physical Exam General Appearance: No Apparent Distress, Normal HEENT: Normal ENT Inspection, Pharynx Normal, TMs Normal Neck: Full Range of Motion, Non-Tender, Normal, Normal Inspection Respiratory: Chest Non-Tender, Lungs Clear, No Accessory Muscle Use, No Respiratory Distress, Normal Breath Sounds Cardiovascular: No Edema, No JVD, No Murmur, No Gallop, Normal Peripheral Pulses, Regular Rate/Rhythm Breast Exam: Deferred Gastrointestinal: No Organomegaly, Non Tender, No Pulsatile Mass, Normal Bowel Sounds, Soft Genitalia: Deferred Pelvic: Deferred Rectal: Deferred Extremities: No calf tenderness, Normal capillary refill, Normal inspection, Normal range of motion, Non-tender, No pedal edema Musculoskeletal : Apperance: Normal Neurologic: Alert, concentrator operator II-XII nml as Tested, No Motor Deficits, Normal Affect, Normal Mood, No Sensory Deficits Cerebellar Function: Normal Reflexes: Normal Skin: Dry, Normal Color, Warm Lymphatic: No Adenopathy Was a procedure done? Was a procedure done?: No Differential Dx Considerations may include: Patient with a worsening generalized weakness and confusion. We will admit patient for further workup and expert consultation X-Ray, Labs, Meds, VS Vital Signs Date Time Temp Pulse Resp B/P (MAP) Pulse Ox O2 Delivery O2 Flow Rate FiO2 01/16/25 09:58 83 01/16/25 09:50 98.0 87 13 126/87 98 98.0 Lab Test 01/16/25 12:26 01/16/25 12:01 01/16/25 11:10 01/16/25 09:59 Range/Units Troponin I High Sensitivity 3 L 4 </=34 ng/L Urine Color Light-yellow Yellow Urine Clarity Clear Clear Urine pH 6.0 5.0-9.0 Urine Specific [place] 1.007 1.001-1.035 Urine Protein Negative Negative Urine Ketones Negative Negative Urine Blood Negative Negative /uL Urine Nitrite Negative Negative Urine Bilirubin Negative Negative Urine Urobilinogen Normal Negative mg/dL Urine Leukocyte Esterase 2+ Negative /uL Urine RBC 2 0 - 4 /hpf Urine Microscopic WBC 9 H 0-5 /HPF Urine Squamous Epithelial Cells Few <5 /hpf Urine Bacteria None seen None Seen /hpf Urine Glucose Normal Normal mg/dL White Blood Count 8.1 4.4-10.8 10^3/uL Red Blood Count 4.73 4.0-5.20 10^6/uL Hemoglobin 14.1 12.2-16.2 g/dL Hematocrit 41.4 36.0-46.0 % Mean Corpuscular Volume 87.5 80.0-100.0 fL Mean Corpuscular Hemoglobin 29.9 28.0-32.0 pg Mean Corpuscular Hemoglobin Concent 34.1 32.0-36.0 g/dL Red Cell Distribution Width 14.3 11.8-14.3 % Platelet Count 353 140-450 10^3/uL Mean Platelet Volume 8.6 6.9-10.8 fL Neutrophils (%) (Auto) 68.5 37.0-80.0 % Lymphocytes (%) (Auto) 23.1 10.0-50.0 % Monocytes (%) (Auto) 7.3 0.0-12.0 % Eosinophils (%) (Auto) 0.5 0.0-7.0 % Basophils (%) (Auto) 0.6 0.0-2.0 % Neutrophils # (Auto) 5.5 1.6-8.6 10 ^3/uL Lymphocytes # (Auto) 1.9 0.4-5.4 10 ^3/uL Monocytes # (Auto) 0.6 0-1.3 10 ^3/uL Eosinophils # (Auto) 0 0-0.8 10 ^3/uL Basophils # (Auto) 0 0-0.2 10 ^3/uL Nucleated Red Blood Cells 0.0 % Sodium Level 140 136-145 mmol/L Potassium Level 3.4 L 3.5-5.1 mmol/L Chloride Level 101 98-107 mmol/L Carbon Dioxide Level 29 20-31 mmol/L Anion Gap 10 5-15 Blood Urea Nitrogen 9 9-23 mg/dL Creatinine 0.87 0.550-1.02 mg/dL Glomerular Filtration Rate Calc 74 >90 mL/min BUN/Creatinine Ratio 10.3 10.0-20.0 Serum Glucose 111 H 74-106 mg/dL Calcium Level 9.4 8.7-10.4 mg/dL POC Glucose 162 H 70-106 mg/dl Time of 1ST Reevaluation: 11:34 Reevaluation 1ST: Unchanged Patient Education/Counseling: Diagnosis, Treatment Family Education/Counseling: Diagnosis, Treatment SEPSIS Sepsis Screen Date sepsis recognized/suspect: Jan 16, 2025 Time Sepsis recognized/suspect: 0950 Recent Procedure: No On Antibiotic Therapy: No Respiratory Rate >20: No Heart Rate >90: No Temp<36 C (96.8 F) or >38.3 C: No SBP <90 or MAP <65 mmHG: No New Acute Mental Status Change: No Is the patient on CPAP, BIPAP,: No Physician Orders Electrocardigram (01/16/25 09:53) Chest Portable (01/16/25 10:34) Troponin-I Hs (01/16/25 13:34) Vital Signs Date Time Temp Pulse Resp B/P (MAP) Pulse Ox O2 Delivery O2 Flow Rate FiO2 01/16/25 09:58 83 01/16/25 09:50 98.0 87 13 126/87 98 98.0 Laboratory Tests Test 01/16/25 11:10 White Blood Count 8.1 10^3/uL (4.4-10.8) Departure 1 Departure Time of Disposition: 13:54 (Patient with a worsening generalized weakness and increasing confusion. We will admit patient for further workup and expert consultation) Impression: Primary Impression: Generalized weakness Additional Impression: Near syncope Disposition: ADMITTED INPATIENT Admit to: Med Surg Condition: Guarded Critical Care Note Critical Care Time?: No Stability Stability form required: No Heart Score Heart Score: Heart Score Response (Comments) Value History N/A 0 EKG N/A 0 Age N/A 0 Risk Factors N/A 0 Troponin N/A 0 Total 0 I personally scribed for ALAN DAMON MD ([email or web address]) on 01/16/25 at 10:41. Electronically submitted by Yobani Anderson ([email or web address]). ALAN DAMON MD Jan 16, 2025 10:41
--- NOTE | 2025-01-16 11:10 | DVH ---
INDICATION: weakness TECHNIQUE: Frontal view of the chest. COMPARISON: XY CHEST PORTABLE on DOS: 11/24/24, CHEST TWO VIEWS ROUTINE on DOS: 09/30/21, CXR2 on DOS: 09/30/21, CHEST TWO VIEWS ROUTINE on DOS: 11/05/20, CHEST TWO VIEWS ROUTINE on DOS: 12/19/19 FINDINGS: . The heart and mediastinal contours are grossly unremarkable. There is no evidence of pleural disease. The lungs are clear. The bony structures of the chest are intact without fracture. IMPRESSION: 1. No evidence of acute disease.
[2025-01-16 11:34] LABS: Hematocrit 41.4 % (36.0-46.0); Hemoglobin 14.1 g/dL (12.2-16.2); Mean Corpuscular Hemoglobin 29.9 pg (28.0-32.0); Mean Corpuscular Volume 87.5 fL (80.0-100.0); Nucleated Red Blood Cells % 0.0 %
[2025-01-16 11:40] LABS: Chloride 101 mmol/L (98-107); Sodium 140 mmol/L (136-145)
[2025-01-16 11:41] LABS: Anion Gap 10 (5-15); Calcium 9.4 mg/dL (8.7-10.4); Carbon Dioxide 29 mmol/L (20-31)
[2025-01-16 11:46] LABS: BUN/Creatinine Ratio 10.3 (10.0-20.0); Blood Urea Nitrogen 9 mg/dL (9-23)
[2025-01-16 11:47] LABS: Glucose 111 mg/dL (74-106); Potassium 3.4 mmol/L (3.5-5.1)
[2025-01-16 12:17] LABS: Urine Protein, UAD Negative (Negative)
[2025-01-16] MEDS ORDERED: DOCUSATE SOD 100 MG CAP PO PRN (14:15)
[2025-01-16] MEDS ORDERED: ONDANSETRON HCL 4 MG/2 ML VIAL IV PRN (14:15)
[2025-01-16] MEDS ORDERED: NITROGLYCERIN 0.4 MG SL TAB SL PRN (14:15)
[2025-01-16] MEDS ORDERED: MORPHINE SULFATE INJ 2 MG/ml SYRG IV PRN ×2 (14:15)
[2025-01-16] MEDS ORDERED: DEXTROSE (50%) 50ML SYRG IV PRN (14:45)
--- NOTE | 2025-01-16 15:05 | DVHHPRES ---
History of Present Illness Resident Creating Document: SUAD RAMIREZ RESIDENT History of Present Illness Ms. Nguyen, a 64-year-old female with a history of diabetes, hypertension, hyperlipidemia, peptic ulcer disease, and prior TIA presents to the ED with generalized weakness. She was recently diagnosed with H. pylori and started on triple antibiotic therapy, after which she began experiencing progressive weakness, chest pain, and shortness of breath. She reports fatigue with minimal exertion but denies nausea, vomiting, diarrhea, abdominal pain, fever, or chills. She arrived ambulatory without prehospital treatment, and information was obtained from both the patient and her spouse. PmHx: DM, High Lipids, HTN, PUD, TIA, H. Pylori SRHx: surgical history Right total knee replacement and prior FISHER CRAB History: No Pertinent FISHER CRAB History Family History: Non contributory Social History: The patient lives at home, denies smoking, alcohol or illicit drugs abuse. Review of Systems Constitutional: Yes: Weakness, Malaise; No: Fever, Chills, Sweats, Other Eyes: No: Pain, Vision change, Conjunctivae inflammation, Eyelid inflammation, Other, Redness ENT: No: Ear pain, Ear discharge, Nose pain, Nose discharge, Nose congestion, Mouth pain, Mouth swelling, Throat pain, Throat swelling, Other Respiratory: No: Cough, Dry, Shortness of breath, SOB with excertion, Wheezing, Hemoptysis, Pleuritic Pain, Sputum, Wheezing, Other Cardiovascular: No: Chest Pain, Palpitations, Orthopnea, Paroxysmal Noc. Dyspnea, Edema, Lt Headedness, Other Gastrointestinal: No: Nausea, Vomiting, Abdominal Pain, Diarrhea, Constipation, Melena, Hematochezia, Other Genitourinary: No Dysuria, No Frequency, No Incontinence, No Hematuria, No Retention, No Other Neurological: Weakness; No: Numbness, Incoordination, Change in speech, Confusion, Seizures, Other Allergies: Coded Allergies: NO KNOWN ALLERGIES (Unverified , 11/14/14) Medications Current Medications Medications Dose Ordered Sig/Dank Route Start Time Stop Time Status Last Admin Dose Admin Sodium Chloride 1,000 ml @ 60 mls/hr [id number] IV 01/16/25 14:15 UNV Ondansetron HCl 4 mg Q4HP PRN IV 01/16/25 14:15 UNV Docusate Sodium 100 mg BIDPRN PRN PO 01/16/25 14:15 UNV Acetaminophen 650 mg Q6HP PRN PO 01/16/25 14:15 UNV Morphine Sulfate 2 mg Q4HPRN PRN IV 01/16/25 14:15 UNV Nitroglycerin 0.4 mg Q5MINP PRN SL 01/16/25 14:15 UNV Morphine Sulfate 2 mg Q30M PRN IV 01/16/25 14:15 UNV Diagnostic Test (Pha) 1 strip ACHS 01/16/25 17:00 UNV Insulin Human Regular ACHS SC 01/16/25 17:00 UNV Dextrose 50 ml UD PRN IV 01/16/25 14:45 UNV Exam Vital Signs Vital Signs Date Time Temp Pulse Resp B/P (MAP) Pulse Ox O2 Delivery O2 Flow Rate FiO2 01/16/25 14:49 97.7 88 18 140/91 (107) 97 97.7 General Appearance: Alert, Oriented X3, Cooperative, No acute distress HEENT: Atraumatic, PERRLA, EOMI, Other (moderately hydrated) Cardiovascular: Regular rate, Normal S1, Normal S2, No murmurs Abdominal: Normal bowel sounds, Soft, No tenderness, No hepatospenomegaly, No masses Extremities: No clubbing, No cyanosis, No edema, Normal pulses, No tenderness/swelling Skin: No rashes, No breakdown, No significant lesion Neuro: Normal gait, Normal speech, Strength at 5/5 X4 ext (4/5 in all the extremities. ), Normal tone, Sensation intact Psych/Mental Status: Mental status NL, Mood NL, Other (TRENT 7 and PHQ 2/9 ) Labs/Xrays Labs Test 01/16/25 14:39 01/16/25 12:01 01/16/25 11:10 01/16/25 09:59 Range/Units Urine Color Light-yellow Yellow Urine Clarity Clear Clear Urine pH 6.0 5.0-9.0 Urine Specific [place] 1.007 1.001-1.035 Urine Protein Negative Negative Urine Ketones Negative Negative Urine Blood Negative Negative /uL Urine Nitrite Negative Negative Urine Bilirubin Negative Negative Urine Urobilinogen Normal Negative mg/dL Urine Leukocyte Esterase 2+ Negative /uL Urine RBC 2 0 - 4 /hpf Urine Microscopic WBC 9 H 0-5 /HPF Urine Squamous Epithelial Cells Few <5 /hpf Urine Bacteria None seen None Seen /hpf Urine Glucose Normal Normal mg/dL White Blood Count 8.1 4.4-10.8 10^3/uL Red Blood Count 4.73 4.0-5.20 10^6/uL Hemoglobin 14.1 12.2-16.2 g/dL Hematocrit 41.4 36.0-46.0 % Mean Corpuscular Volume 87.5 80.0-100.0 fL Mean Corpuscular Hemoglobin 29.9 28.0-32.0 pg Mean Corpuscular Hemoglobin Concent 34.1 32.0-36.0 g/dL Red Cell Distribution Width 14.3 11.8-14.3 % Platelet Count 353 140-450 10^3/uL Mean Platelet Volume 8.6 6.9-10.8 fL Neutrophils (%) (Auto) 68.5 37.0-80.0 % Lymphocytes (%) (Auto) 23.1 10.0-50.0 % Monocytes (%) (Auto) 7.3 0.0-12.0 % Eosinophils (%) (Auto) 0.5 0.0-7.0 % Basophils (%) (Auto) 0.6 0.0-2.0 % Neutrophils # (Auto) 5.5 1.6-8.6 10 ^3/uL Lymphocytes # (Auto) 1.9 0.4-5.4 10 ^3/uL Monocytes # (Auto) 0.6 0-1.3 10 ^3/uL Eosinophils # (Auto) 0 0-0.8 10 ^3/uL Basophils # (Auto) 0 0-0.2 10 ^3/uL Nucleated Red Blood Cells 0.0 % Sodium Level 140 136-145 mmol/L Potassium Level 3.4 L 3.5-5.1 mmol/L Chloride Level 101 98-107 mmol/L Carbon Dioxide Level 29 20-31 mmol/L Anion Gap 10 5-15 Blood Urea Nitrogen 9 9-23 mg/dL Creatinine 0.87 0.550-1.02 mg/dL Glomerular Filtration Rate Calc 74 >90 mL/min BUN/Creatinine Ratio 10.3 10.0-20.0 Serum Glucose 111 H 74-106 mg/dL Calcium Level 9.4 8.7-10.4 mg/dL POC Glucose 162 H 70-106 mg/dl SEPSIS Sepsis Screen Date sepsis recognized/suspect: Jan 16, 2025 Time Sepsis recognized/suspect: 0950 Recent Procedure: No On Antibiotic Therapy: No Respiratory Rate >20: No Heart Rate >90: No Temp<36 C (96.8 F) or >38.3 C: No SBP <90 or MAP <65 mmHG: No New Acute Mental Status Change: No Is the patient on CPAP, BIPAP,: No Physician Orders Electrocardigram (01/16/25 09:53) Chest Portable (01/16/25 10:34) Troponin-I Hs (01/16/25 13:34) Admit (01/16/25 14:15) Allergies (01/16/25 14:15) Code Status (01/16/25 14:15) Sodium Chloride 0.9% (01/16/25 14:15) Ondansetron Hcl (Zofran) (01/16/25 14:15) Docusate Sodium Capsule (Colace Capsule) (01/16/25 14:15) Fall Risk Precautions In Place QSHIFT (01/16/25 14:15) Complete Blood Count (01/17/25 04:00) Comprehensive Metabolic Panel (01/17/25 04:00) Pt Request For Service (01/16/25 14:15) Echo 2d Mode Cardiac Dop (01/16/25 14:15) Condition: Serious (01/16/25 14:15) Acetaminophen Tablet (Tylenol Tablet) (01/16/25 14:15) Morphine Sulfate Injection (01/16/25 14:15) Sequential Compression Device (01/16/25 ) Nitroglycerin Sublingual (Ntrostat Subli (01/16/25 14:15) Morphine Sulfate Injection (01/16/25 14:15) Oxygen By Nasal Cannula (01/16/25 14:15) Stat Ekg For Chest Pain (01/16/25 14:15) Notify Md Of Changes From Base (01/16/25 14:15) Television Picture Tube Rebuilder For 24 Hours (01/16/25 14:15) Emergency Dysrhythmia Protocol (01/16/25 14:15) Rhythm Strips Once Every Shift (01/16/25 14:15) Complete Blood Count (01/17/25 04:00) Comprehensive Metabolic Panel (01/17/25 04:00) Thyroid Stimulating Hormone (01/16/25 14:35) Folate (Folic Acid) (01/16/25 14:35) Vitamin B12 (01/16/25 14:35) Glucose Blood (Accu-Chek Comfort Curve T (01/16/25 17:00) Insulin R (Human) (Insulin R) (01/16/25 17:00) Dextrose 50% Syringe (01/16/25 14:45) Consistent Carb(Ccho)Diabetes (01/16/25 Dinner) Hepatic Panel (01/16/25 14:35) Covid19 Antigen Veronica (01/16/25 ) Rapid Influenza A&B (01/16/25 14:38) B-Type Natriuretic Peptide (01/16/25 14:55) Troponin-I Hs (01/16/25 14:55) Troponin-I Hs (01/16/25 15:55) Troponin-I Hs (01/16/25 17:55) H. Pylori Urea Breath Test (01/16/25 14:55) Pantoprazole Tablet (Protonix Tablet) (01/17/25 06:00) Pantoprazole Tablet (Protonix Tablet) (01/16/25 15:00) Vital Signs Date Time Temp Pulse Resp B/P (MAP) Pulse Ox O2 Delivery O2 Flow Rate FiO2 01/16/25 14:49 97.7 88 18 140/91 (107) 97 97.7 01/16/25 09:58 83 01/16/25 09:50 98.0 87 13 126/87 98 98.0 Laboratory Tests Test 01/16/25 11:10 White Blood Count 8.1 10^3/uL (4.4-10.8) Assessment/Plan Assessment/Plan Assessment and Plan: # Generalized weakness, fatigue: Broad differentials include cardio respiratory, endocrinological, hematological, gynecological, infectious causes: PT evaluation for objective weakness, check B12, folate, TSH, common viral illness. Rule vascular encephalic changes, # occasional chest pain/ shortness of Breath: Ruled out ACS,, CAD, previous stress test 2019 was negative for CAD. Possible GERD/ reflux related chest pain in differential , last echo more than 6 months ago repeat TTE , EKG, BNP, drop trend. 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 oral GOP 1 Rybelsus 3mg Tablets daily. With # GERD/ PUD: H pylori breath test was positive previously 12/01/2024 , established GI with Dr. Eden Alejandro, patient on triple therapy ( amoxicillin 500, clarithromycin, esomeprazole,) 2 cm sliding-type hiatal hernia with slightly irregular squamocolumnar junction minimal grade a erosive esophagitis, avoid aspirin, NSAIDs, alcohol, chocolate, other caustic/spicy food. # Obesity grade I: BMI 34.3, Continue , weight loss lifestyle mod ification. # LVH with secondary repolarization abnormality#13 # hemorrhoids: Patient on procto made 2% locally, Sitz bath, conservative management to continue, avoid constipation. # Essential hypertension: Home medications include amlodipine 5 mg, metoprolol tartrate 50 mg b.i.d. will hold with target blood pressure of 130/80 as per AHA/ACC guidelines. PUD prophylaxis: protonix 40mg daily DVT prophylaxis: SCDs only. Barriers to discharge: Medical diagnosis and management in progress. Patient lives with family. Independent for ADL. PT and SW consult as needed for safe discharge. PCP: Dr. Jaquez. Specialist Relevant To Admission: N/A Case discussed with Dr. Knowles. Code Status: Full Code. Discussion needed total 33 minutes bedside. Plan discussed with: Patient My Orders Orders - SUAD RAMIREZ RESIDENT Procedure Category Date Status Time Admit ADMIT 01/16/25 Transmitted 14:15 Allergies HEMA 01/16/25 In Process 14:15 Code Status CODE 01/16/25 Transmitted 14:15 Sodium Chloride 0.9% PHA 01/16/25 Logged 14:15 Ondansetron Hcl PHA 01/16/25 Logged (Zofran) 14:15 Docusate Sodium PHA 01/16/25 Logged Capsule (Colace 14:15 Fall Risk Precautions HEMA 01/16/[address] 14:15 Complete Blood Count LAB 01/17/25 Verified 04:00 Comprehensive LAB 01/17/25 Verified Metabolic Panel 04:00 Pt Request For Service PT 01/16/25 Logged 14:15 Echo 2d Mode Cardiac US 01/16/25 Logged DOP 14:15 Condition: Serious HEMA 01/16/25 In Process 14:15 Acetaminophen Tablet [facility] 01/16/25 Logged (Tylenol Tablet) 14:15 Morphine Sulfate PHA 01/16/25 Logged Injection 14:15 Sequential HEMA 01/16/25 In Process Compression Device Nitroglycerin PHA 01/16/25 Logged Sublingual (Ntrostat 14:15 Morphine Sulfate PHA 01/16/25 Logged Injection 14:15 Oxygen By Nasal RT 01/16/25 Transmitted Cannula 14:15 Stat Ekg For Chest [facility] 01/16/25 In Process Pain 14:15 Notify Of Changes [facility] 01/16/25 In Process From Base 14:15 Television Picture Tube Rebuilder For [facility] 01/16/25 In Process 24 Hours 14:15 Emergency Dysrhythmia [facility] 01/16/25 In Process Protocol 14:15 Rhythm Strips Once [facility] 01/16/25 In Process Every Shift 14:15 Complete Blood Count LAB 01/17/25 Verified 04:00 Comprehensive LAB 01/17/25 Verified Metabolic Panel 04:00 Thyroid Stimulating LAB 01/16/25 In Process Hormone 14:35 Folate (Folic Acid) LAB 01/16/25 In Process 14:35 Vitamin B12 LAB 01/16/25 In Process 14:35 Glucose Blood PHA 01/16/25 Logged (Accu-Chek Comfort 17:00 Insulin R (Human) PHA 01/16/25 Logged (Insulin R) 17:00 Dextrose 50% Syringe PHA 01/16/25 Logged 14:45 Consistent DIET 01/16/25 Transmitted Carb(Ccho)Diabetes Dinner Hepatic Panel LAB 01/16/25 In Process 14:35 Covid19 Antigen Veronica LAB 01/16/25 Logged Rapid Influenza A&B LAB 01/16/25 Logged 14:38 B-Type Natriuretic LAB 01/16/25 Transmitted Peptide 14:55 Troponin-I Hs LAB 01/16/25 Transmitted 14:55 Troponin-I Hs LAB 01/16/25 Transmitted 15:55 Troponin-I Hs LAB 01/16/25 Transmitted 17:55 H. Pylori Urea Breath LAB 01/16/25 Transmitted Test 14:55 Pantoprazole Tablet PHA 01/17/25 Logged (Protonix Tablet) 06:00 Pantoprazole Tablet PHA 01/16/25 Logged (Protonix Tablet) 15:00 Date of Service: Jan 16, 2025 Billing Provider: DEVORA KNOWLES MD Common Visit Codes: [id number] INP/OBS CARE (HIGH) Secondary Visit Codes: [id number] CARE PLAN 30 MINUTES SUAD RAMIREZ RESIDENT Jan 16, 2025 15:05
[2025-01-16 15:16] LABS: Alanine Aminotransferase 17.0 U/L (7-40); Albumin 4.5 g/dL (3.2-4.8); Alkaline Phosphatase 95.0 U/L (46-116); Bilirubin, Direct 0.2 mg/dL (<0.3); Bilirubin, Total 0.8 mg/dL (0.2-1.0); Total Protein 7.6 g/dL (5.7-8.2)
[2025-01-16] MEDS: SODIUM CHLORIDE 0.9% 1,000 ML IV SCH (15:59)
[2025-01-16] MEDS: PANTOPRAZOLE 40 MG TAB PO ONE (16:08)
[2025-01-16 17:02] LABS: COVID19 ANTIGEN SOFIA FIA NEGATIVE (NEGATIVE)
[2025-01-16] MEDS: ACCU-CHEK COMFORT CURVE STRIP VI SCH (17:23)
[2025-01-16] MEDS: InsuLIN REG 1unit/0.01ml Soln (100units/ml) SC SCH (17:49)
[2025-01-17] MEDS ORDERED: MET50T PO (01:01)
[2025-01-17] MEDS ORDERED: CLAR1TAB21 PO (01:01)
[2025-01-17] MEDS ORDERED: ROSU20TA14 PO (01:01)
[2025-01-17] MEDS ORDERED: AMOX500C2 PO (01:01)
[2025-01-17] MEDS ORDERED: AMLO1TAB22 PO (01:01)
[2025-01-17] MEDS ORDERED: IRBE300T48 PO (01:01)
[2025-01-17] MEDS ORDERED: SEMA3TAB2 PO (01:01)
[2025-01-17] MEDS ORDERED: ESOM40CA83 PO (01:01)
[2025-01-17 05:00] VITALS: BP 111/57; PULSE 77; RESP 20; TEMP 97.6; O2SAT 96
[2025-01-17 05:18] LABS: Hematocrit 39.9 % (36.0-46.0); Hemoglobin 13.4 g/dL (12.2-16.2); Mean Corpuscular Hemoglobin 29.4 pg (28.0-32.0); Mean Corpuscular Volume 87.8 fL (80.0-100.0); Nucleated Red Blood Cells % 0.0 %
[2025-01-17 05:39] LABS: Alanine Aminotransferase 15 U/L (7-40); Albumin 4.4 g/dL (3.2-4.8); Alkaline Phosphatase 88 U/L (46-116); Anion Gap 11 (5-15); BUN/Creatinine Ratio 13.3 (10.0-20.0); Bilirubin, Total 0.5 mg/dL (0.2-1.0); Blood Urea Nitrogen 11 mg/dL (9-23); Calcium 9.2 mg/dL (8.7-10.4); Carbon Dioxide 30 mmol/L (20-31); Chloride 101 mmol/L (98-107); Sodium 142 mmol/L (136-145); Total Protein 7.3 g/dL (5.7-8.2)
[2025-01-17 05:42] LABS: Glucose 118 mg/dL (74-106); Potassium 3.2 mmol/L (3.5-5.1)
[2025-01-17] MEDS: PANTOPRAZOLE 40 MG TAB PO SCH (05:58)
[2025-01-17 09:00] VITALS: BP 100/56; PULSE 80; RESP 18; TEMP 97.9; O2SAT 97
[2025-01-17] MEDS: ACETAMINOPHEN 325 MG TAB PO PRN (10:10)
[2025-01-17 13:00] VITALS: BP 128/82; PULSE 89; RESP 19; TEMP 98.4; O2SAT 99
--- NOTE | 2025-01-17 14:49 | DVHPN2 ---
Subjective Patient continues to report having generalized weakness. Reviewed: Care Plan, H&P, Labs, Medications Changes from previous H/P or p: No Changes General: Per HPI Eyes: No Pain, No Vision change, No Conjunctivae inflammation, No Eyelid inflammation, No Other, No Redness ENT: No Ear pain, No Ear discharge, No Nose pain, No Nose discharge, No Nose congestion, No Mouth pain, No Mouth swelling, No Throat pain, No Throat swelling, No Other Cardiovascular: No Chest Pain, No Palpitations, No Orthopnea, No Paroxysmal Noc. Dyspnea, No Edema, No Lt Headedness, No Other Respiratory: No Cough, No Dry, No Shortness of breath, No SOB with excertion, No Wheezing, No Hemoptysis, No Pleuritic Pain, No Sputum, No Other Gastrointestinal: No Nausea, No Vomiting, No Abdominal Pain, No Diarrhea, No Constipation, No Melena, No Hematochezia, No Other Genitourinary: No Dysuria, No Frequency, No Incontinence, No Hematuria, No Retention, No Other Objective Vitals Vital Signs Date Time Temp Pulse Resp B/P (MAP) Pulse Ox O2 Delivery O2 Flow Rate FiO2 01/17/25 13:24 Room Air* 0 21 01/17/25 13:00 98.4 89 19 128/82 (97) 99 98.4 General Appearance: Alert, Oriented X3, Cooperative, No acute distress, Other (Obese) HEENT: Atraumatic, PERRLA Lungs: Clear to auscultation, Normal air movement Cardiovascular: Normal S1 Abdomen: Normal bowel sounds, Soft, No tenderness Musculoskeletal: Normal sensory function, Normal motor function Extremities: No clubbing, No cyanosis Skin: Dry, Intact Psych/Mental Status: Mental status NL, Mood NL Medications Current Medications Medications Dose Ordered Sig/Dank Route Start Time Stop Time Status Last Admin Dose Admin Ondansetron HCl 4 mg Q4HP PRN IV 01/16/25 14:15 Docusate Sodium 100 mg BIDPRN PRN PO 01/16/25 14:15 Acetaminophen 650 mg Q6HP PRN PO 01/16/25 14:15 01/17/25 10:10 650 MG Morphine Sulfate 2 mg Q4HPRN PRN IV 01/16/25 14:15 Nitroglycerin 0.4 mg Q5MINP PRN SL 01/16/25 14:15 Morphine Sulfate 2 mg Q30M PRN IV 01/16/25 14:15 Diagnostic Test (Pha) 1 strip ACHS 01/16/25 17:00 01/17/25 12:24 1 STRIP Insulin Human Regular ACHS SC 01/16/25 17:00 01/16/25 17:49 2 UNITS Dextrose 50 ml UD PRN IV 01/16/25 14:45 Pantoprazole Sodium 40 mg DAILY@0600 PO 01/17/25 06:00 01/17/25 05:58 40 MG Ceftriaxone Sodium 50 ml @ 100 mls/hr DAILY@09 IV 01/17/25 09:00 01/17/25 10:04 100 MLS/HR Laboratory Results Laboratory Tests 01/17/25 04:29 Chemistry Test 01/17/25 04:29 Albumin 4.4 g/dL (3.2-4.8) Calcium Level 9.2 mg/dL (8.7-10.4) Total Protein 7.3 g/dL (5.7-8.2) LFT Test 01/17/25 04:29 Alanine Aminotransferase (ALT) 15 U/L (7-40) Alkaline Phosphatase 88 U/L (46-116) Aspartate Amino Transferase (AST) 16 U/L (13-40) Total Bilirubin 0.5 mg/dL (0.2-1.0) Urinalysis Test 01/16/25 12:01 Urine Color Light-yellow (Yellow) Urine Clarity Clear (Clear) Urine pH 6.0 (5.0-9.0) Urine Specific [place] 1.007 (1.001-1.035) Urine Protein Negative (Negative) Urine Ketones Negative (Negative) Urine Blood Negative /uL (Negative) Urine Nitrite Negative (Negative) Urine Bilirubin Negative (Negative) Urine Urobilinogen Normal mg/dL (Negative) Urine Leukocyte Esterase 2+ /uL (Negative) Urine RBC 2 /hpf (0 - 4) Urine Microscopic WBC 9 /HPF (0-5) H Urine Squamous Epithelial Cells Few /hpf (<5) Urine Bacteria None seen /hpf (None Seen) Urine Glucose Normal mg/dL (Normal) Labs and/or images reviewed: Labs reviewed by me, Image(s) reviewed by me Assessment/Plan Assessment/Plan Impression: -complicated cystitis -sarcoidosis -? H pylori -GERD -obesity -primary hypertension -diabetes mellitus Plan: -echocardiogram: Pending -continue antibiotic therapy with Rocephin -regular insulin sliding scale -PPI -check ESR, CRP Total time spent with patient discussing and formulating plan of care: 35 minutes. This medical document was created using an electronic medical record system with [employer] dictation system. Although this document has been carefully reviewed, there may still be some phonetic and typographical errors. These areas are purely typographical due to imperfections of the software programs, and do not reflect any compromise in the patient's medical care. Plan discussed with: Patient, Other (RN) My Orders Orders - MERY PAGE NP Procedure Category Date Status Time Sod Chl 0.9%/ Kcl PHA 01/17/25 In Process 20meq 13:15 Basic Metabolic Panel LAB 01/18/25 Verified 04:00 Complete Blood Count LAB 01/18/25 Verified 04:00 Hemoglobin A1c LAB 01/17/25 Transmitted 14:38 Erythrocyte LAB 01/17/25 Transmitted Sedimentation Rate 14:38 C-Reactive Protein LAB 01/17/25 Transmitted 14:38 Date of Service: Jan 17, 2025 Billing Provider: MERY PAGE NP Common Visit Codes: [id number] INP/OBS CARE(HIGH) MERY PAGE NP Jan 17, 2025 14:49
[2025-01-17] MEDS: SOD CHL 0.9%/ KCL 20MEQ 1,000 ML IV ONE (15:52)
[2025-01-17 17:23] VITALS: BP 115/75; PULSE 81; RESP 17; TEMP 98.1; O2SAT 95
[2025-01-17 20:00] VITALS: PULSE 93; RESP 18; O2SAT 96
[2025-01-17 21:00] VITALS: BP 132/82; PULSE 93; RESP 16; TEMP 98.2; O2SAT 96
[2025-01-17] MEDS: HYDROcodone-ACET 5/325MG TAB PO ONE (22:41)
[2025-01-18 01:00] VITALS: BP 112/63; PULSE 81; RESP 14; TEMP 97.6; O2SAT 95
[2025-01-18 05:00] VITALS: BP 130/81; PULSE 73; RESP 14; TEMP 97.7; O2SAT 99
[2025-01-18 05:35] LABS: Hematocrit 34.9 % (36.0-46.0); Hemoglobin 12.0 g/dL (12.2-16.2); Mean Corpuscular Hemoglobin 30.0 pg (28.0-32.0); Mean Corpuscular Volume 87.3 fL (80.0-100.0); Nucleated Red Blood Cells % 0.1 %
[2025-01-18 05:45] LABS: Chloride 104 mmol/L (98-107); Potassium 3.6 mmol/L (3.5-5.1); Sodium 144 mmol/L (136-145)
[2025-01-18 05:46] LABS: Anion Gap 10 (5-15); Calcium 8.7 mg/dL (8.7-10.4); Carbon Dioxide 30 mmol/L (20-31)
[2025-01-18 05:51] LABS: BUN/Creatinine Ratio 11.4 (10.0-20.0); Blood Urea Nitrogen 9 mg/dL (9-23)
[2025-01-18 05:54] LABS: Glucose 130 mg/dL (74-106)
[2025-01-18 08:00] VITALS: PULSE 83; RESP 19; O2SAT 97
[2025-01-18 08:46] VITALS: BP 143/93; PULSE 83; RESP 19; TEMP 97; O2SAT 97
--- NOTE | 2025-01-18 10:58 | DVHSR ---
APPROVED REPORT EXAM: Two-dimensional and M-mode echocardiogram with Doppler and color Doppler. Blood Pressure: 111/57 mmHg INDICATION Rule out structural heart disease RISK FACTORS Obesity: Height: 5'2", Weight: 181 DIMENSIONS LVDd 3.3 (3.8-5.7cm) LA (2D) 3.2 (1.9-4.0cm) Aortic Root 3.0 (2.0-3.7cm) LVDs 2.2 (2.5-4.0cm) LA (MM) (1.9-4.0cm) Aortic Cusp Exc 1.8 (1.5-2.0cm) EF (%) 60.0 (55-70%) Rt. Atrium 3.5 (1.9-4.0cm) Asc. Aorta cm IVSd 1.2 (0.7-1.1cm) RV (D) (1.8-2.4cm) PWd 1.0 (0.7-1.1cm) Mitral Valve Mitral Mitral Stenosis E wave 0.69m/s MV Mean GR. mmHg A wave 0.89m/s MV Peak GR. mmHg E/A ratio 0.8 2D MVA cm2 DECEL Time 276ms PRESS 1/2 Time ms Aortic Valve Aortic Valve Aortic Stenosis V1 1.39m/s AO Mean GR. 7mmHg V2 1.82m/s AO Peak GR. 13mmHg LVOT Diameter 1.9 (1.8-2.4cm) Doppler DAYANARA 2.16cm2 Pulmonic Valve V2 1.05m/s Tricuspid Valve TR Velocity 2.79m/s RVSP 34mmHg Other Information Technically limited study due to body habitus. Conclusion LV EF IS 65% NORMAL VALVES NORMAL RV FUNCTION NO EFFUSION
[2025-01-18 12:28] VITALS: BP 155/88; PULSE 97; RESP 19; TEMP 97.9; O2SAT 97
[2025-01-18 12:43] VITALS: BP 155/88; PULSE 97; RESP 19; TEMP 97.7; O2SAT 97
--- NOTE | 2025-01-18 14:22 | DVHDS2 ---
Discharge Summary Date of Admission Jan 16, 2025 at 15:57 Date of Discharge: Jan 18, 2025 Admitting Diagnosis Generalized weakness Labs/Diagnostic Data: Laboratory Results Test 01/18/25 06:12 01/18/25 04:44 01/17/25 04:29 01/16/25 16:04 POC Glucose 142 mg/dl (70-106) White Blood Count 7.7 10^3/uL (4.4-10.8) Red Blood Count 4.00 10^6/uL (4.0-5.20) Hemoglobin 12.0 g/dL (12.2-16.2) Hematocrit 34.9 % (36.0-46.0) Mean Corpuscular Volume 87.3 fL (80.0-100.0) Mean Corpuscular Hemoglobin 30.0 pg (28.0-32.0) Mean Corpuscular Hemoglobin Concent 34.4 g/dL (32.0-36.0) Red Cell Distribution Width 13.8 % (11.8-14.3) Platelet Count 261 10^3/uL (140-450) Mean Platelet Volume 8.6 fL (6.9-10.8) Neutrophils (%) (Auto) 62.2 % (37.0-80.0) Lymphocytes (%) (Auto) 26.9 % (10.0-50.0) Monocytes (%) (Auto) 9.1 % (0.0-12.0) Eosinophils (%) (Auto) 1.1 % (0.0-7.0) Basophils (%) (Auto) 0.7 % (0.0-2.0) Neutrophils # (Auto) 4.8 10 ^3/uL (1.6-8.6) Lymphocytes # (Auto) 2.1 10 ^3/uL (0.4-5.4) Monocytes # (Auto) 0.7 10 ^3/uL (0-1.3) Eosinophils # (Auto) 0.1 10 ^3/uL (0-0.8) Basophils # (Auto) 0.1 10 ^3/uL (0-0.2) Nucleated Red Blood Cells 0.1 % Sodium Level 144 mmol/L (136-145) Potassium Level 3.6 mmol/L (3.5-5.1) Chloride Level 104 mmol/L (98-107) Carbon Dioxide Level 30 mmol/L (20-31) Anion Gap 10 (5-15) Blood Urea Nitrogen 9 mg/dL (9-23) Creatinine 0.79 mg/dL (0.550-1.02) Glomerular Filtration Rate Calc 82 mL/min (>90) BUN/Creatinine Ratio 11.4 (10.0-20.0) Serum Glucose 130 mg/dL (74-106) Calcium Level 8.7 mg/dL (8.7-10.4) Erythrocyte Sedimentation Rate 14 mm/hr (0-20) Hemoglobin A1c 7.2 % A1C (<5.7) Total Bilirubin 0.5 mg/dL (0.2-1.0) Aspartate Amino Transferase (AST) 16 U/L (13-40) Alanine Aminotransferase (ALT) 15 U/L (7-40) Alkaline Phosphatase 88 U/L (46-116) C-Reactive Protein High Sensitivity 0.26 mg/dL (<1.0) Total Protein 7.3 g/dL (5.7-8.2) Albumin 4.4 g/dL (3.2-4.8) Influenza Type A Antigen Negative (Negative) Influenza Type B Antigen Negative (Negative) SARS-CoV-2 Antigen (Rapid) Negative (NEGATIVE) Test 01/16/25 14:39 01/16/25 12:01 01/16/25 11:17 Direct Bilirubin 0.2 mg/dL (<0.3) Troponin I High Sensitivity 3 ng/L (</=34) Vitamin B12 Level 550 pg/mL (211-911) Folic Acid 20.52 ng/mL (>5.38) Thyroid Stimulating Hormone (TSH) 3.99 uIU/mL (0.55-4.78) Urine Color Light-yellow (Yellow) Urine Clarity Clear (Clear) Urine pH 6.0 (5.0-9.0) Urine Specific [place] 1.007 (1.001-1.035) Urine Protein Negative (Negative) Urine Ketones Negative (Negative) Urine Blood Negative /uL (Negative) Urine Nitrite Negative (Negative) Urine Bilirubin Negative (Negative) Urine Urobilinogen Normal mg/dL (Negative) Urine Leukocyte Esterase 2+ /uL (Negative) Urine RBC 2 /hpf (0 - 4) Urine Microscopic WBC 9 /HPF (0-5) Urine Squamous Epithelial Cells Few /hpf (<5) Urine Bacteria None seen /hpf (None Seen) Urine Glucose Normal mg/dL (Normal) B-Type Natriuretic Peptide 6.03 pg/mL (0-100) Other Laboratory Tests 01/18/25 04:44 Brief Hx & Hospital Course: History of Present Illness Ms. Nguyen, a 64-year-old female with a history of diabetes, hypertension, hyperlipidemia, peptic ulcer disease, and prior TIA presents to the ED with generalized weakness. She was recently diagnosed with H. pylori and started on triple antibiotic therapy, after which she began experiencing progressive weakness, chest pain, and shortness of breath. She reports fatigue with minimal exertion but denies nausea, vomiting, diarrhea, abdominal pain, fever, or chills. She arrived ambulatory without prehospital treatment, and information was obtained from both the patient and her spouse. Course of hospitalization: Patient had echocardiogram with results being unremarkable with normal ejection fraction. ESR, CRP were negative. Patient's blood pressure remained stable in the hospital while being off of all antihypertensives. She was placed on IV Rocephin for questionable UTI as seen on UA. Patient denies having any UTI symptoms at home prior to coming to the hospital. Discussion was made with the patient regarding her symptoms prior to coming in the hospital. Apparently, she has had worsening abdominal discomfort with her generalized weakness after being started on clarithromycin, Augmentin in addition to Nexium for diagnosis of H pylori as an outpatient. Patient was instructed to continue Nexium, but hold oral antibiotics and to follow up with director of accreditation at next available appointment given her inability to tolerate oral antibiotics for her H pylori. With respect to her antihypertensives, she is instructed to continue her metoprolol tartrate 50 mg p.o. b.i.d., and hold her Irbesartan/Hydrochlorothizide if SBP less than 130mmhg, until she follows up with Dr. Gold. She is agreeable with discharge plan. All questions answered. Physical examination General: Alert and Oriented x3. No acute distress. Well-nourished. Eyes: EOMI. Anicteric. HENT: Moist mucous membranes. Lungs: Clear to auscultation bilaterally. No accessory muscle use. Cardiovascular: Regular rate and rhythm. No murmur. No JVD. Abdomen: Soft, non-tender and non-distended. No palpable masses. Extremities: No edema. Non-tender. Skin: No rashes or lesions. Warm. Neurologic: No focal neurological deficits. CN II-XII grossly intact, but not individually tested. Psychiatric: Cooperative. Appropriate mood and affect. Total time spent with patient discussing and formulating plan of care: 35 minutes. This medical document was created using an electronic medical record system with [employer] system. Although this document has been carefully reviewed, there may still be some phonetic and typographical errors. These areas are purely typographical due to imperfections of the software programs, and do not reflect any compromise in the patient's medical care. Condition at Discharge: Fair Final Diagnosis/Problems List Abdominal pain secondary to H Pylori treatment Secondary diagnosis: -complicated cystitis -sarcoidosis -? H pylori -GERD -obesity -primary hypertension -diabetes mellitus Discharge Disposition: Home Discharge Instruct/Medications Diet: Cardiac 2g Na,low cholest Activity: No Restrictions, As Tolerated Follow Up/Referral: PCP in [address] Alejandro in 1 week Medications: Hold clarithromycin and amoxicillin given inability to tolerate Continue all other previous home medications Hold Irbesartan/Hydrochlorothizide if SBP less than 130mmhg Scheduled Amlodipine Besylate (Amlodipine Besylate), 1 TAB PO DAILY, (Reported) Amoxicillin Trihydrate (Amoxicillin), 2 CAP PO BID, (Reported) Clarithromycin (Clarithromycin), 1 TAB PO BID, (Reported) Esomeprazole Magnesium (Esomeprazole Magnesium Dr), 1 CAP PO BID, (Reported) Esomeprazole Magnesium Trihydr (Nexium), 1 CAP PO BID, (Reported) Irbesartan-Hydrochlorothiazide (Irbesartan/Hydrochlorothi 300-12.5 mg), 1 TAB PO DAILY, (Reported) Metoprolol Tartrate (Lopressor Tablet), 1 TAB PO BID, (Reported) Rosuvastatin Calcium (Crestor), 20 MG PO DAILY, (Reported) Semaglutide (Rybelsus), 3 MG PO DAILY, (Reported) 36 Discharge Statement: "Patient was advised to return to the ER or call 911 if any headaches, dizziness, shortness of breath, chest pain, abdominal pain, bleeding, fevers, or worsening of medical condition. Patient was counseled about treatment plan, medications, possible side effects, patientverbalized understanding. All questions were answered to the best of my ability. This discharge took greater then 30 minutes in planning, reviewing documentation, counseling the patient, and discussing with other team members." ASSESSMENT ASSESSMENT Assessment Abdominal pain secondary to H Pylori treatment Date of Service: Jan 18, 2025 Billing Provider: MERY PAGE NP Common Visit Codes: 37751-BPS/OBS DISCH DAY >30min MERY PAGE NP Jan 18, 2025 14:22
== END 2025-01-18 13:15 | disposition home or self-care (01) | DRG 690 ==
LOC: ER 09:47 → OVERFLOW 14:15 → UNDOADMIN 14:15 → OVERFLOW 15:57 → CENTRAL 01-17 16:36
PROVIDERS: ADMIT Nurse Practitioner Acute Care; ATTEND Nurse Practitioner Acute Care
DX: N30.00 Acute cystitis without hematuria (principal); D86.9 Sarcoidosis, unspecified; E11.9 Type 2 diabetes mellitus without complications; I10 Essential (primary) hypertension; E66.811 Obesity, class 1; E87.6 Hypokalemia; R07.9 Chest pain, unspecified; E78.5 Hyperlipidemia, unspecified; Z96.651 Presence of right artificial knee joint; K21.9 Gastro-esophageal reflux disease without esophagitis; Z20.822 Contact with and (suspected) exposure to COVID-19; M71.22 Synovial cyst of popliteal space [Baker], left knee; Z68.34 Body mass index [BMI] 34.0-34.9, adult; Z87.11 Personal history of peptic ulcer disease; Z86.73 Personal history of transient ischemic attack (TIA), and cerebral infarction without residual deficits; Z68.33 Body mass index [BMI] 33.0-33.9, adult
CPT/HCPCS: 36415; 71045; 80048; 80053; 80076; 81001; 82607; 82746; 82962; 83036; 83880; 84443; 84484; 85025; 85652; 86141; 87426; 87804; 93306; 97162; G0378; J1815

== ENCOUNTER 2025-02-07 14:20 | Outpatient (CLI) | payer MEDICARE ==
[~2025-02-07 14:20] MED LIST changes: +AMLO1TAB22 PO; +AMOX500C2 PO; +CLAR1TAB21 PO; -ERY05OO OP; +ESOM40CA83 PO; -IBUP-1455 PO; +IRBE300T48 PO; -LEVO500T91 PO; -LOSA-535 PO; +MET50T PO; +ROSU20TA14 PO
[2025-02-07 15:23] LABS: Hematocrit 42.8 % (36.0-46.0); Hemoglobin 14.4 g/dL (12.2-16.2); Mean Corpuscular Hemoglobin 29.6 pg (28.0-32.0); Mean Corpuscular Volume 87.7 fL (80.0-100.0); Nucleated Red Blood Cells % 0.0 %
[2025-02-07 15:38] LABS: INR 1.01 (0.9-1.15); Prothrombin Time 10.7 sec (9.3-11.8)
[2025-02-07 16:33] LABS: Alanine Aminotransferase 24 U/L (7-40); Alkaline Phosphatase 105 U/L (46-116); Anion Gap 10 (5-15); BUN/Creatinine Ratio 15.4 (10.0-20.0); Bilirubin, Total 0.5 mg/dL (0.2-1.0); Blood Urea Nitrogen 12 mg/dL (9-23); Calcium 9.8 mg/dL (8.7-10.4); Carbon Dioxide 29 mmol/L (20-31); Chloride 103 mmol/L (98-107); Potassium 3.7 mmol/L (3.5-5.1); Sodium 142 mmol/L (136-145); Total Protein 8.2 g/dL (5.7-8.2)
[2025-02-07 16:38] LABS: Albumin 4.9 g/dL (3.2-4.8); Glucose 117 mg/dL (74-106)
== END 2025-02-07 17:00 | disposition home or self-care (01) ==
LOC: LAB 14:20
PROVIDERS: ATTEND Internal Medicine Gastroenterology
DX: R94.5 Abnormal results of liver function studies (principal); B96.81 Helicobacter pylori [H. pylori] as the cause of diseases classified elsewhere
CPT/HCPCS: 36415; 80053; 83013; 85025; 85610